=== PATIENT | male | born 1975 | race Caucasian/White ===

== ENCOUNTER → 2018-02-10 11:03 | Outpatient (CLI) | payer BC, SELFPAY ==
[2018-02-10 12:02] LABS: Absolute Lymphocyte Count 1.63 X10^3/ul (0.83-4.51); Absolute Neutrophil Count 2.7 X10^3/uL (2.0-7.7); Basophil# 0.01 X10^3/uL; Basophil% 0.2 % (0-1); Eosinophil# 0.06 X10^3/uL; Eosinophils% 1.2 % (0-5); Hematocrit 43.8 % (40-54); Hemoglobin 15.6 g/dl (13.0-16.5); Lymphocyte # 1.63 X10^3/ul (4.0); Lymphocyte % 33.8 % (19-41); Mean Corp Hgb Conc 35.6 g/gl (32-36); Mean Corpuscular Hgb 31.8 pg (27.0-32.0); Mean Corpuscular Volume 89.4 fL (80-94); Mean Platelet Vol. 12.8 fl (6.2-12.0); Monocyte# 0.38 X10^3/uL; Monocyte% 7.9 % (0-10); Neutrophil # 2.74 X10^3/uL (2.7-7.7); Neutrophil % 56.9 % (47-70); Platelet Count 160 K/mm3 (150-450); RBC Distribution Width SD 42.5 fl (35.1-43.9); White Blood Count 4.8 K/mm3 (4.4-11.0)
[2018-02-10 12:06] LABS: POSITIVE COUNT NO; POSITIVE DIFFERENTIAL NO; POSITIVE MORPHOLOGY NO
== END ==
PROVIDERS: Family Provider Family Medicine; PCP Family Medicine; Visit Provider Internal Medicine Gastroenterology
DX: K51.90 Ulcerative colitis, unspecified, without complications (principal)
CPT/HCPCS: 36415; 85025

== ENCOUNTER → 2018-05-26 11:56 | Outpatient (CLI) | payer BC, SELFPAY | PROVIDERS: Family Provider Family Medicine; PCP Family Medicine; Referring Provider Internal Medicine Gastroenterology; Visit Provider Internal Medicine Gastroenterology | DX: K51.90 Ulcerative colitis, unspecified, without complications (principal) ==

== ENCOUNTER → 2018-09-06 14:17 | Outpatient (CLI) | payer BC, SELFPAY ==
[2018-09-06 15:38] LABS: Hematocrit 44.4 % (40-54); Hemoglobin 15.2 g/dl (13.0-16.5); Mean Corp Hgb Conc 34.2 g/gl (32-36); Mean Corpuscular Hgb 30.5 pg (27.0-32.0); Mean Corpuscular Volume 89.2 fL (80-94); Mean Platelet Vol. 11.7 fl (6.2-12.0); Platelet Count 257 K/mm3 (150-450); RBC Distribution Width CV 13.5 % (11.6-14.6); RBC Distribution Width SD 43.3 fl (35.1-43.9); Red Blood Count 4.98 M/mm3 (4.6-6.2); Scan Indicated on CBC? Y/N NO; White Blood Count 9.2 K/mm3 (4.4-11.0)
[2018-09-06 15:52] LABS: AST(SGOT) 12 U/L (15-37); Alanine Aminotransfer ALT/SGPT 23 U/L (16-61); Albumin, Serum 3.7 g/dL (3.2-5.0); Alkaline Phosphatase 104 U/L (45-117); Bilirubin, Direct 0.15 mg/dL (0.00-0.30); Globulin 3.7 g/dL (2.2-4.2); Protein, Total 7.4 g/dL (6.4-8.2)
[2018-09-06 16:10] LABS: Erythrocyte Sedimentation Rate 37 mm/hr (0-15)
--- OUTSIDE RECORDS SUMMARY | 2018-11-11 11:18 | XMS RPT_ITS ---
:1975 Author Organization [facility] Care Team Providers Name Role Phone ROEL RIVERA Attending Unavailable ROEL RIVERA Referring Unavailable ROEL RIVERA Referring Unavailable ROEL RIVERA Referring Unavailable ROEL RIVERA Referring Unavailable ROEL RIVERA Attending Unavailable ROEL RIVERA Referring Unavailable ROEL RIVERA Referring Unavailable BEATRIZ ROSAROI Attending Unavailable ROEL RIVERA Referring Unavailable Chuck Fernandez Attending Unavailable Roel Rivera Primary Care Unavailable Chuck Fernandez Referring Unavailable Chuck Fernandez Attending Unavailable Chuck Fernandez Referring Unavailable Roel Rivera Primary Care Unavailable Chuck Fernandez Attending Unavailable Roel Rivera Primary Care Unavailable Chuck Fernandez Referring Unavailable Chuck Fernandez Attending Unavailable Chuck Fernandez Referring Unavailable Roel Rivera Primary Care Unavailable PROBLEMS PROBLEMS DATE TYPE CONDITION / CODE ATTENDING STATUS SOURCE 09/06/2018 Unknown K51.90 - Ulcerative Chuck Fernandez Active [place] colitis, Community unspecified, without Hospital complications / Repository K51.90(ICD-10) 09/01/2018 Active Abnormal results of NA Active Yolyn liver function [facility] Main studies / [place] R94.5(ICD-10) Repository 08/28/2017 Active Mixed hyperlipidemia NA Active Yolyn / E78.2(ICD-10) Clinic Main [place] Repository 02/10/2018 Active 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 Yolyn genital organs, [facility] Main unspecified / [place] N50.9(ICD-10) Repository PROCEDURES PROCEDURES No Procedure Records FoundRESULTS RESULTS PROGRESS Observed: 09/08/2018 Status: COMPLETED Source: [place] 9:05 AM [facility] REPOSITORY HNO ID: [id number] Author: Beatriz Rosario Service: (none) Author Type: Physician Type: Progress Notes Filed: 09/10/2018 11:32 AM Note Text: Rena Kaplan 1975 REFERRING PHYSICIAN: Roel Rivera MD CHIEF COMPLAINT: Consult HPI: The patient is a 43 year old male presents with mass of posterior lower neck. Noted for about 6 months, slowly enlarging in size. Denies pain in the area, but discomfort when extending neck due to pressure caused by its presence. Denies trauma to area Denies drainage from the area PAST MEDICAL HISTORY Diagnosis Date - Back pain - Chronic right-sided low back pain with right-sided sciatica 02/01/2017 - Elevated LFTs 09/01/2018 - Hydrocele, bilateral 02/17/2018 - Hyperlipidemia, mixed 08/28/2017 - Left varicocele 02/17/2018 - Lipoma of neck 09/01/2018 - Plantar fasciitis of left foot 01/01/2014 - Smoker 09/01/2018 Started at age 17 up to 1 PPD - Ulcerative colitis (HCC) Seeing Dr. Fernandez and is on imuran and seems to be well under control. PAST SURGICAL HISTORY Procedure Laterality Date - COLONOSCOPY W/BX 02/10/06 - SIGMOIDOSCOPY FLEX DIAG 04/16/2011 Sigmoidoscopy, flexible PAST INJURIES Denies head injuries, denies history of fractures Current Outpatient Prescriptions: mesalamine ER (APRISO) 0.375 gram capsule Take 4 capsules by mouth once daily. Per Dr. Fernandez Gastro azaTHIOprine (IMURAN) 50 mg tablet Take [address] Fernandez ALLERGIES: Patient has no known allergies. 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 Drug use: No FAMILY HISTORY Problem Relation Age of Onset - Cancer Paternal Grandfather - Heart Paternal Grandmother - Hypertension Father hemochromotosis - other (hypertension) Mother - other (crohns) Mother - None Brother - None Sister REVIEW OF SYSTEMS: General: The patient denies fatigue, denies weight loss, denies weight gain, denies feeling hot, and denies feelings of cold. Eyes: The patient denies glaucoma, denies eye injury/surgery, does not wear glasses or contacts. Ear/Nose/Throat: The patient denies allergies, denies hayfever, denies ear infections, and denies bloody noses. Cardiovascular: The patient denies chest pain, denies heart disease, denies high blood pressure,denies cardiac stent, denies prior heart attack, denies irregular heart beat Respiratory: The patient denies tuberculosis, denies pneumonia, denies frequent cough, denies pulmonary embolism, denies shortness of breath, and denies coughing up blood. Gastrointestinal: has ulcerative colitis and is on immunomodulators followed by Dr. Fernandez, denies difficulty swallowing, denies acid reflux, denies vomiting, denies jaundice/hepatitis Kidney/Bladder: The patient denies kidney stones, denies urine infections, and denies bloody urine. Skin: The patient denies a history of skin cancer, denies bleeding/changing moles, and denies a history of skin rash. Neurologic: The patient denies a history of epilepsy/convulsions, denies headaches, denies head/spinal injuries, and denies stroke/TIA. Psychiatric: The patient denies psychiatric medications, denies depression, and denies voices, denies substance abuse. Endocrine: The patient denies thyroid disorders, denies diabetes, and denies hormonal problems. Hematologic: The patient denies a history of bruising, denies bleeding, and denies anemia, denies blood clots. Infections: The patient denies a history of measles and mumps, denies rheumatic fever, and denies sexually transmitted diseases. Musculoskeletal: has chronic low back pain, denies sciatica, denies knee/foot trouble, denies arthritis, or denies gout. PHYSICAL EXAMINATION: General: The patient is 43 year old male, well nourished, well hydrated in no acute distress. The patient is oriented to time, place, and person. VITALS: Blood pressure 110/84, pulse 66, weight 107.1 kg (236 lb 3.2 oz). Body mass index is 32.03 kg/m?. Head ? Normocephalic. EOM intact with sclera clear and no icterus noted. Mouth with mucus membranes moist. Neck - supple with no jugular venous distention noted. Trachea is midline. Posterior lower - 10 cm mass - deep to subcutaneous tissues, dense rubbery not mobile, no overlying skin changes Lungs ? clear to auscultation. Normal breath sounds. No rales/rhonchi/wheezing noted. No labored breathing noted, such as retractions. Heart ? normal S1 and S2 auscultated. No rubs/clicks/murmurs noted. Regular rate. Abdomen ? soft and benign. Normal bowel sounds. No abdominal bruits noted. No distention or tympany noted. Extremities ? no calf tenderness noted. No pitting edema noted Skin ? normal skin integrity. Lymph ? no cervical adenopathy detected, no supraclavicular adenopathy detected Neurological ? gait normal, no focal deficits noted Psych ? calm and appropriate Assessment IMPRESSION: mass of posterior neck PLAN: I have discussed the above with the patient. This clinically is not clinically classic for lipoma - however, it may be deep to the fascia Will obtain CT scan for delineation. The patient wishes to proceed. Will contact patient with results and if he wishes, we can schedule for excision after review of the CT scan. I have answered all questions to the patient?s satisfaction and the patient has no further questions. . Diagnoses: (R22.1) Localized swelling, mass and lump, neck (primary encounter diagnosis) Return to Clinic: The patient is instructed to follow-up with me as per needed. Beatriz Rosario MD CNOV Observed: 09/08/2018 Status: COMPLETED Source: [place] 8:20 AM [facility] REPOSITORY Office Visit (GENSWS) RENA KAPLAN ([id number]) 1975 M Date Time Provider Department 09/08/18 8:20 AM BEATRIZ ROSARIO During your visit today, we recorded the following information about you: Pulse Blood pressure Weight 66/minute 110/84 107.1 kg Angie Nascimento RN 09/08/2018 8:16 AM Signed REVIEW OF SYSTEMS: General: The patient denies fatigue, denies weight loss, denies weight gain, denies feeling hot, and denies feelings of cold. Eyes: The patient denies glaucoma, denies eye injury/surgery, does not wear glasses or contacts. Ear/Nose/Throat: The patient denies allergies, denies hayfever, denies ear infections, and denies bloody noses. Cardiovascular: The patient denies chest pain, denies heart disease, denies high blood pressure,denies cardiac stent, denies prior heart attack, denies irregular heart beat, denies high cholesterol, denies poor circulation, denies heart failure, other cardiac issues, denies claudication, denies cold feet, denies peripheral arterial stent. Respiratory: The patient denies tuberculosis, denies pneumonia, denies frequent cough, denies pulmonary embolism, denies shortness of breath, and denies coughing up blood. Gastrointestinal: The patient denies difficulty swallowing, denies acid reflux, denies ulcers, denies vomiting, denies jaundice/hepatitis, denies gallbladder problems, denies black or tarry stools, denies hemorrhoids, denies bleeding from rectum, denies diverticulitis, denies constipation, denies diarrhea, denies loss of stool control, and denies hernias. Kidney/Bladder: The patient denies kidney stones, denies urine infections, and denies bloody urine. Skin: The patient denies a history of skin cancer, denies bleeding/changing moles, and denies a history of skin rash. Neurologic: The patient denies a history of epilepsy/convulsions, denies headaches, denies head/spinal injuries, and denies stroke/TIA. Psychiatric: The patient denies psychiatric medications, denies depression, and denies voices, denies substance abuse. Endocrine: The patient denies thyroid disorders, denies diabetes, and denies hormonal problems. Hematologic: The patient denies a history of bruising, denies bleeding, and denies anemia, denies blood clots. Infections: The patient denies a history of measles and mumps, denies rheumatic fever, and denies sexually transmitted diseases. Musculoskeletal: The patient denies back pain/injury, denies back problems, denies sciatica, denies knee/foot trouble, denies arthritis, or denies gout. When was patient's last Mammogram screening? N/A Last Colonoscopy: 08/2017 Angie Rosario MD 09/10/2018 11:32 AM Signed Rena Kaplan 1975 REFERRING PHYSICIAN: Roel Rivera MD CHIEF COMPLAINT: Consult HPI: The patient is a 43 year old male presents with mass of posterior lower neck. Noted for about 6 months, slowly enlarging in size. Denies pain in the area, but discomfort when extending neck due to pressure caused by its presence. Denies trauma to area Denies drainage from the area PAST MEDICAL HISTORY Diagnosis Date - Back pain - Chronic right-sided low back pain with right-sided sciatica 02/01/2017 - Elevated LFTs 09/01/2018 - Hydrocele, bilateral 02/17/2018 - Hyperlipidemia, mixed 08/28/2017 - Left varicocele 02/17/2018 - Lipoma of neck 09/01/2018 - Plantar fasciitis of left foot 01/01/2014 - Smoker 09/01/2018 Started at age 17 up to 1 PPD - Ulcerative colitis (HCC) Seeing Dr. Fernandez and is on imuran and seems to be well under control. PAST SURGICAL HISTORY Procedure Laterality Date - COLONOSCOPY W/BX 02/10/06 - SIGMOIDOSCOPY FLEX DIAG 04/16/2011 Sigmoidoscopy, flexible PAST INJURIES Denies head injuries, denies history of fractures Current Outpatient Prescriptions: mesalamine ER (APRISO) 0.375 gram capsule Take 4 capsules by mouth once daily. Per Dr. Fernandez Gastro azaTHIOprine (IMURAN) 50 mg tablet Take [address] Fernandez ALLERGIES: Patient has no known allergies. 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 Drug use: No FAMILY HISTORY Problem Relation Age of Onset - Cancer Paternal Grandfather - Heart Paternal Grandmother - Hypertension Father hemochromotosis - other (hypertension) Mother - other (crohns) Mother - None Brother - None Sister REVIEW OF SYSTEMS: General: The patient denies fatigue, denies weight loss, denies weight gain, denies feeling hot, and denies feelings of cold. Eyes: The patient denies glaucoma, denies eye injury/surgery, does not wear glasses or contacts. Ear/Nose/Throat: The patient denies allergies, denies hayfever, denies ear infections, and denies bloody noses. Cardiovascular: The patient denies chest pain, denies heart disease, denies high blood pressure,denies cardiac stent, denies prior heart attack, denies irregular heart beat Respiratory: The patient denies tuberculosis, denies pneumonia, denies frequent cough, denies pulmonary embolism, denies shortness of breath, and denies coughing up blood. Gastrointestinal: has ulcerative colitis and is on immunomodulators followed by Dr. Fernandez, denies difficulty swallowing, denies acid reflux, denies vomiting, denies jaundice/hepatitis Kidney/Bladder: The patient denies kidney stones, denies urine infections, and denies bloody urine. Skin: The patient denies a history of skin cancer, denies bleeding/changing moles, and denies a history of skin rash. Neurologic: The patient denies a history of epilepsy/convulsions, denies headaches, denies head/spinal injuries, and denies stroke/TIA. Psychiatric: The patient denies psychiatric medications, denies depression, and denies voices, denies substance abuse. Endocrine: The patient denies thyroid disorders, denies diabetes, and denies hormonal problems. Hematologic: The patient denies a history of bruising, denies bleeding, and denies anemia, denies blood clots. Infections: The patient denies a history of measles and mumps, denies rheumatic fever, and denies sexually transmitted diseases. Musculoskeletal: has chronic low back pain, denies sciatica, denies knee/foot trouble, denies arthritis, or denies gout. PHYSICAL EXAMINATION: General: The patient is 43 year old male, well nourished, well hydrated in no acute distress. The patient is oriented to time, place, and person. VITALS: Blood pressure 110/84, pulse 66, weight 107.1 kg (236 lb 3.2 oz). Body mass index is 32.03 kg/m?. Head ? Normocephalic. EOM intact with sclera clear and no icterus noted. Mouth with mucus membranes moist. Neck - supple with no jugular venous distention noted. Trachea is midline. Posterior lower - 10 cm mass - deep to subcutaneous tissues, dense rubbery not mobile, no overlying skin changes Lungs ? clear to auscultation. Normal breath sounds. No rales/rhonchi/wheezing noted. No labored breathing noted, such as retractions. Heart ? normal S1 and S2 auscultated. No rubs/clicks/murmurs noted. Regular rate. Abdomen ? soft and benign. Normal bowel sounds. No abdominal bruits noted. No distention or tympany noted. Extremities ? no calf tenderness noted. No pitting edema noted Skin ? normal skin integrity. Lymph ? no cervical adenopathy detected, no supraclavicular adenopathy detected Neurological ? gait normal, no focal deficits noted Psych ? calm and appropriate Assessment IMPRESSION: mass of posterior neck PLAN: I have discussed the above with the patient. This clinically is not clinically classic for lipoma - however, it may be deep to the fascia Will obtain CT scan for delineation. The patient wishes to proceed. Will contact patient with results and if he wishes, we can schedule for excision after review of the CT scan. I have answered all questions to the patient?s satisfaction and the patient has no further questions. . Diagnoses: (R22.1) Localized swelling, mass and lump, neck (primary encounter diagnosis) Return to Clinic: The patient is instructed to follow-up with me as per needed. Beatriz Rosario MD Referring Provider: ROEL RIVERA [[id number]] Allergies As of Date: 09/08/2018 (No Known Allergies) Date Reviewed: 09/08/2018 Reviewed by: Beatriz Rosario - Fully Assessed Reason for Visit: Consult [[id number]] Primary Visit Diagnosis:Localized swelling, mass and lump, neck [R22.1] Other Visit Diagnosis:Localized swelling, mass or lump of neck [R22.1] Order(s):CT NECK SOFT TISSUE WO IVCON [[id number]] Order #: [id number] FUTURE Prescriptions as of 09/08/2018 Sig: MESALAMINE ER 0.375 GRAM CAPS* Take 4 capsules by mouth once* AZATHIOPRINE 50 MG TABLET Take [address]* Problem List As Of Date 09/08/2018 Noted Resolved Ulcerative colitis (HCC) [K51.90] More... Sciatica [M54.30] INVALID FOR*03/17/2011 Back pain [M54.9] INVALID FOR* More... Plantar fasciitis of left foot [M72.2] INVALID FOR* More... More... Chronic right-sided low back pain with right-si*INVALID FOR* Encounter for screening for cardiovascular diso*INVALID FOR* Encounter for screening for diabetes mellitus [*INVALID FOR* Hyperlipidemia, mixed [E78.2] INVALID FOR* Well adult exam [Z00.00] INVALID FOR* More... Mass of scrotum [N50.9] INVALID FOR* More... Hydrocele, bilateral [N43.3] INVALID FOR* Left varicocele [I86.1] INVALID FOR* Elevated LFTs [R94.5] INVALID FOR* Lipoma of neck [D17.0] INVALID FOR* Smoker [F17.200] INVALID FOR* More... Visit Notes: >> Angie Nascimento RN TueSep 08, 2018 8:15 AM Status: Signed REVIEW OF SYSTEMS: General: The patient denies fatigue, denies weight loss, denies weight gain, denies feeling hot, and denies feelings of cold. Eyes: The patient denies glaucoma, denies eye injury/surgery, does not wear glasses or contacts. Ear/Nose/Throat: The patient denies allergies, denies hayfever, denies ear infections, and denies bloody noses. Cardiovascular: The patient denies chest pain, denies heart disease, denies high blood pressure,denies cardiac stent, denies prior heart attack, denies irregular heart beat, denies high cholesterol, denies poor circulation, denies heart failure, other cardiac issues, denies claudication, denies cold feet, denies peripheral arterial stent. Respiratory: The patient denies tuberculosis, denies pneumonia, denies frequent cough, denies pulmonary embolism, denies shortness of breath, and denies coughing up blood. Gastrointestinal: The patient denies difficulty swallowing, denies acid reflux, denies ulcers, denies vomiting, denies jaundice/hepatitis, denies gallbladder problems, denies black or tarry stools, denies hemorrhoids, denies bleeding from rectum, denies diverticulitis, denies constipation, denies diarrhea, denies loss of stool control, and denies hernias. Kidney/Bladder: The patient denies kidney stones, denies urine infections, and denies bloody urine. Skin: The patient denies a history of skin cancer, denies bleeding/changing moles, and denies a history of skin rash. Neurologic: The patient denies a history of epilepsy/convulsions, denies headaches, denies head/spinal injuries, and denies stroke/TIA. Psychiatric: The patient denies psychiatric medications, denies depression, and denies voices, denies substance abuse. Endocrine: The patient denies thyroid disorders, denies diabetes, and denies hormonal problems. Hematologic: The patient denies a history of bruising, denies bleeding, and denies anemia, denies blood clots. Infections: The patient denies a history of measles and mumps, denies rheumatic fever, and denies sexually transmitted diseases. Musculoskeletal: The patient denies back pain/injury, denies back problems, denies sciatica, denies knee/foot trouble, denies arthritis, or denies gout. When was patient's last Mammogram screening? N/A Last Colonoscopy: 08/2017 Angie Nascimento RN Letter Text Encounter Status:Closed by MD BEATRIZ ROSARIO on 09/10/18 Observed: 09/07/2018 Status: F Source: [place] CDIFF (MOLECULAR) 12:00 AM [facility] [place] Cdiff-Molecular Normal Reference Range = Negative C. Diff DNA Negative- No toxigenic C. Diff DNA Detected NAAT METHOD Testing was performed using nucleic acid amplification Performed By: #### M100.6796 #### [facility] [address] [place], [place], [address] CBC-COMPLETE BLOOD CNT Collected: 09/06/2018 Status: F Source: [place] NO DIFF 2:23 PM [facility] [place] [facility] TYPE CODE TESTS RESULT OUT OF RANGE REFERENCE UNITS LAB L100.1000 4.4-11.0 K/mm3 Normal WBC 9.2 LAB L100.1200 4.6-6.2 M/mm3 Normal RBC 4.98 LAB L100.1300 13.0-16.5 g/dl Normal HGB 15.2 LAB L100.1400 40-54 % Normal HCT 44.4 LAB L100.1500 80-94 fL Normal MCV 89.2 LAB L100.1600 27.0-32.0 pg Normal MCH 30.5 LAB L100.1700 32-36 g/gl Normal MCHC 34.2 LAB L100.1810 11.6-14.6 % Normal RDW CV 13.5 LAB L100.1820 35.1-43.9 fl Normal RDW SD 43.3 LAB L100.1900 150-450 K/mm3 Normal PLT 257 LAB L100.2000 6.2-12.0 fl Normal MPV 11.7 Performed By: #### L100.0500, L101.9900 #### [facility] [address] [place], [place], [address] ERYTHROCYTE SED RATE Collected: 09/06/2018 Status: F Source: [place] 2:23 PM [facility] [place] [facility] TYPE CODE TESTS RESULT OUT OF RANGE REFERENCE UNITS LAB L102.0000 0-15 mm/hr High SED RATE 37 Performed By: #### L100.0500, L101.9900 #### [facility] [address] [place], [place], [id number] LIVER PROFILE Collected: 09/06/2018 Status: F Source: [place] 2:23 PM [facility] [place] TYPE CODE TESTS RESULT OUT OF RANGE REFERENCE UNITS LAB L501.1500 6.4-8.2 g/dL Normal T PROT 7.4 LAB L501.1800 3.2-5.0 g/dL Normal ALB 3.7 LAB L501.1950 2.2-4.2 g/dL Normal GLOB 3.7 LAB L501.4100 15-37 U/L Low AST 12 LAB L501.4305 45-117 U/L Normal ALK P 104 LAB L501.4405 16-61 U/L Normal ALT 23 LAB L501.4600 0.20-1.00 mg/dL Normal T BILI 0.70 LAB L501.4700 0.00-0.30 mg/dL Normal D BILI 0.15 Performed By: #### L500.3400 #### [facility] [address] [place], [address] HEPATIC FUNCTN PANEL Collected: 09/01/2018 Status: F Source: [place] 10:40 AM [facility] REPOSITORY TYPE CODE TESTS RESULT OUT OF REFERENCE UNITS RANGE LAB ALB 3.9-4.9 g/dL Albumin 4.7 LAB TBIL 0.2-1.3 mg/dL Bilirubin, Total 0.5 LAB CBIL <0.2 mg/dL Bilirubin,Conjuga <0.2 andrew LAB ALKP 38-113 U/L Alkaline Phosphatase 91 LAB AST 14-40 U/L AST 18 LAB ALT 10-54 U/L ALT 20 LAB TP 6.3-8.0 g/dL Protein, Total 7.2 Performed By: #### HFP, LIPNF #### [facility] [address] [place], [place] [address] LIPID PANEL, NONFAST Collected: 09/01/2018 Status: F Source: [place] 10:40 AM [facility] REPOSITORY TYPE CODE TESTS RESULT OUT OF REFERENCE UNITS RANGE LAB CHOLNF <200 mg/dL Total Cholesterol NF 151 Result Comment: <200 mg/dL, Desirable 200-239 mg/dL, Borderline high >239 mg/dL, High LAB TRIGNF <150 mg/dL Triglycerides, NF High 188 Result Comment: <150 mg/dL, Normal 150-199 mg/dL, Borderline high 200-499 mg/dL, High >499 mg/dL, Very high LAB HDLNF >39 mg/dL HDL Cholesterol, NF Low 27 Result Comment: 40-59 mg/dL, Acceptable >59 mg/dL, High: Negative risk factor for coronary heart disease <40 mg/dL, Low: Positive risk factor for coronary heart disease LAB LDLNF <100 mg/dL LDL Cholesterol, NF 86 Result Comment: <100 mg/dL, Optimal 100-129 mg/dL, Near optimal/above optimal 130-159 mg/dL, Borderline high 160-189 mg/dL, High >189 mg/dL, Very high Secondary prevention optimal LDL Cholesterol levels are recommended to be < 70 mg/dL LAB NOHDLN <130 mg/dL Non HDL Chol, 124 NF Result Comment: <130 mg/dL, Optimal 130-159 mg/dL, Near optimal/above optimal 160-189 mg/dL, Borderline high 190-219 mg/dL, High >219 mg/dL, Very high Secondary prevention optimal non HDL Cholesterol levels are recommended to be < 100 mg/dL LAB VLDLNF <30 mg/dL VLDL Cholesterol, High NF 38 LAB TCHDLN <5.10 mg/dL T Chol/HDL Ratio High NF 5.59 LAB LDLHDN <2.54 mg/dL LDL/HDL Ratio, NF High 3.19 Result Comment: Reference: 1. National Cholesterol Education Program ATP III Guideline At-A-Glance Quick Desk Reference: National Heart, Lung, and Blood Comfort. National Institutes of Health. 2001: NIH Publication No. 01-3305. 2. An International Atherosclerosis Society position paper: global recommendations for the management of dyslipidemia: executive summary, Atherosclerosis. 2014: 232(2):410-413. Performed By: #### HFP, LIPNF #### [facility] [address] [place], [place] [address] PROGRESS Observed: 09/01/2018 Status: COMPLETED Source: [place] 9:56 AM [facility] REPOSITORY O ID: [id number] Author: Roel Rivera Service: (none) Author Type: Physician Type: Progress Notes Filed: 09/01/2018 1:18 PM Note Text: Chief Complaint Patient presents with: Recheck: 6 months HPI Rena Kaplan is a 43 year old male who presents here today for Chronic Medical Conditions.. Patient with UC and seeing Dr. Fernandez doing well. Had a change in medication due to insurance coverage.. Also with Hyperlipidemia, smoker, chronic back pain, elevated LFT's as well as those reviewed and addressed below. Has been doing ok. Back has been slightly more irritated in the past few weeks. Better in the last few days. May try to return to back specialist. New: C/o a lump on the upper back/lower neck area. Not sure if it's gotten larger more recently. No pain. Past medical history, appointments, medications, allergies reviewed. Previous Medical History PAST MEDICAL HISTORY Diagnosis Date - Back pain - Chronic right-sided low back pain with right-sided sciatica 02/01/2017 - Hydrocele, bilateral 02/17/2018 - Hyperlipidemia, mixed 08/28/2017 - Left varicocele 02/17/2018 - Plantar fasciitis of left foot 01/01/2014 - Ulcerative colitis (HCC) Seeing Dr. Fernandez and is on imuran and seems to be well under control. Previous Surgical History PAST SURGICAL HISTORY Procedure Laterality Date - COLONOSCOPY W/BX 02/10/06 - SIGMOIDOSCOPY FLEX DIAG 04/16/2011 Sigmoidoscopy, flexible Family History FAMILY HISTORY Problem Relation Age of Onset - Cancer Paternal Grandfather - Heart Paternal Grandmother - Hypertension Father hemochromotosis - other (hypertension) Mother - other (crohns) Mother - None Brother - None Sister Patient Allergies ALLERGIES No Known Allergies Current Medications Current Outpatient Prescriptions on File Prior to Visit: Mesalamine (LIALDA) 1.2 gram EC tablet Take 2 tablets by mouth daily with breakfast. Per Dr. Fernandez azaTHIOprine (IMURAN) 50 mg tablet Take [address] Fernandez No current facility-administered medications on file prior to visit. 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 Drug use: No Review of Symptoms REVIEW OF SYSTEMS NECK: Negative for lumps, goiter, pain and significant neck swelling RESPIRATORY: Negative for cough, hemoptysis, wheezing, COPD, dyspnea or shortness of breath CARDIOVASCULAR: Negative for chest pain, leg swelling, hypertension, CHF or palpitations MUSCULOSKELETAL: See HPI SKIN: See HPI NEURO: No history of headaches, syncope, paralysis, seizures or tremors EXAM: BP 132/94 Pulse 78 Resp 16 Wt 109.3 kg (241 lb) BMI 32.69 kg/m? BP 122/82 Pulse 78 Resp 16 Wt 109.3 kg (241 lb) BMI 32.69 kg/m? General Appearance: Well appearing, alert, in no acute distress, well-hydrated, well nourished. and Overweight. Skin: has a fair sized lipoma on the back of his neck.. Eyes: Anicteric sclera. Pupils are equally round. Extraocular movements are intact. . Neck: Supple, no adenopathy; thyroid symmetric, normal size, no bruits. Lungs: lungs clear to auscultation. No wheezing, rhonchi, rales. Heart: RRR without murmur, gallop, or rubs. No ectopy. Abdomen: Normal abdominal exam, Abdomen soft, non-tender. Bowel sounds normal. No masses, organomegaly. Extremities: No deformities, edema . Peripheral Pulses: Normal. Neurologic: Gait normal. . Sensation to light touch and strength intact.. Health Maintenance List ONE PNEUMOVAX PRIOR TO AGE 65 due on 02/02/1995 LIPID SCREEN due on 03/31/2023 DTAP,TDAP,TD(3 - Td) due on 08/10/2027 INFLUENZA Completed Data reviewed Component Latest Ref Rng AND Units 03/31/2018 05/26/2018 Cholesterol, Total <200 mg/dL 219 (H) Triglyceride <150 mg/dL 254 (H) HDL Cholesterol >39 mg/dL 25 (L) LDL Cholesterol <100 mg/dL 143 (H) Non HDL Cholesterol <130 mg/dL 194 (H) Fasting Time hrs 11 VLDL Cholesterol <30 mg/dL 51 (H) TC:HDL Ratio <5.10 8.76 (H) LDL:HDL Ratio <2.54 5.72 (H) Albumin 3.9 - 4.9 g/dL 4.9 Bilirubin, Total 0.2 - 1.3 mg/dL 0.8 Bilirubin, Conjug <0.2 mg/dL <0.2 Alkaline Phosphatase 38 - 113 U/L 53 AST 14 - 40 U/L 58 (H) ALT 10 - 54 U/L 92 (H) Protein, Total 6.3 - 8.0 g/dL 6.8 Hep A Ab, IgM Negative Negative Hep B Surface Ag Negative Negative HCV RNA by PCR IU/mL HCV RNA not detected by PCR. Hep B Core Ab, IgM Negative Negative A/P ASSESSMENT/PLAN: 1. Hyperlipidemia, mixed - ICD9: 272.2, ICD10: E78.2 (primary diagnosis) - to be determined upon return of lab results - Encouraged following a low fat, low cholesterol diet. - Discussed the benefits of regular aerobic exercise and weight loss. - Encouraged following a low carbohydrate, healthy oil intake diet. - LIPID PANEL, NONFASTING 2. Elevated LFTs - ICD9: 790.6, ICD10: R94.5 check - HEPATIC FUNCTION PNL. If elevated will need US. Hepatitis panel was normal. 3. Other ulcerative colitis without complication - ICD9: 556.8, ICD10: K51.80 - Cont f/u with Gastro 4. Lipoma of neck - ICD9: 214.1, ICD10: D17.0 - Discussed natural course and patient would like to pursue removal - CONSULT TO GENERAL SURGERY 5. Smoker - ICD9: 305.1, ICD10: F17.200 - Cessation encouraged. - Counseling was given focusing on the harmful effects of this addiction especially given the patient's medical condition(s) which will be worsened because of the chemicals in tobacco. - patient has starting thinking of quitting. F/u 6 months WAE sooner if issues. Roel Rivera MD CNOV Observed: 09/01/2018 Status: COMPLETED Source: [place] 9:40 AM [facility] REPOSITORY Office Visit (FAMPWS) RENA KAPLAN ([id number]) 1975 M Date Time Provider Department 09/01/18 9:40 AM ROEL RIVERAPWS During your visit today, we recorded the following information about you: Pulse Respiration Blood pressure Weight 78/minute 16/minute 122/82 109.3 kg Roel Rivera MD 09/01/2018 1:18 PM Signed Chief Complaint Patient presents with: Recheck: 6 months HPI Rena Kaplan is a 43 year old male who presents here today for Chronic Medical Conditions.. Patient with UC and seeing Dr. Fernandez doing well. Had a change in medication due to insurance coverage.. Also with Hyperlipidemia, smoker, chronic back pain, elevated LFT's as well as those reviewed and addressed below. Has been doing ok. Back has been slightly more irritated in the past few weeks. Better in the last few days. May try to return to back specialist. New: C/o a lump on the upper back/lower neck area. Not sure if it's gotten larger more recently. No pain. Past medical history, appointments, medications, allergies reviewed. Previous Medical History PAST MEDICAL HISTORY Diagnosis Date - Back pain - Chronic right-sided low back pain with right-sided sciatica 02/01/2017 - Hydrocele, bilateral 02/17/2018 - Hyperlipidemia, mixed 08/28/2017 - Left varicocele 02/17/2018 - Plantar fasciitis of left foot 01/01/2014 - Ulcerative colitis (HCC) Seeing Dr. Fernandez and is on imuran and seems to be well under control. Previous Surgical History PAST SURGICAL HISTORY Procedure Laterality Date - COLONOSCOPY W/BX 02/10/06 - SIGMOIDOSCOPY FLEX DIAG 04/16/2011 Sigmoidoscopy, flexible Family History FAMILY HISTORY Problem Relation Age of Onset - Cancer Paternal Grandfather - Heart Paternal Grandmother - Hypertension Father hemochromotosis - other (hypertension) Mother - other (crohns) Mother - None Brother - None Sister Patient Allergies ALLERGIES No Known Allergies Current Medications Current Outpatient Prescriptions on File Prior to Visit: Mesalamine (LIALDA) 1.2 gram EC tablet Take 2 tablets by mouth daily with breakfast. Per Dr. Fernandez azaTHIOprine (IMURAN) 50 mg tablet Take [address] Fernandez No current facility-administered medications on file prior to visit. 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 Drug use: No Review of Symptoms REVIEW OF SYSTEMS NECK: Negative for lumps, goiter, pain and significant neck swelling RESPIRATORY: Negative for cough, hemoptysis, wheezing, COPD, dyspnea or shortness of breath CARDIOVASCULAR: Negative for chest pain, leg swelling, hypertension, CHF or palpitations MUSCULOSKELETAL: See HPI SKIN: See HPI NEURO: No history of headaches, syncope, paralysis, seizures or tremors EXAM: BP 132/94 Pulse 78 Resp 16 Wt 109.3 kg (241 lb) BMI 32.69 kg/m? BP 122/82 Pulse 78 Resp 16 Wt 109.3 kg (241 lb) BMI 32.69 kg/m? General Appearance: Well appearing, alert, in no acute distress, well-hydrated, well nourished. and Overweight. Skin: has a fair sized lipoma on the back of his neck.. Eyes: Anicteric sclera. Pupils are equally round. Extraocular movements are intact. . Neck: Supple, no adenopathy; thyroid symmetric, normal size, no bruits. Lungs: lungs clear to auscultation. No wheezing, rhonchi, rales. Heart: RRR without murmur, gallop, or rubs. No ectopy. Abdomen: Normal abdominal exam, Abdomen soft, non-tender. Bowel sounds normal. No masses, organomegaly. Extremities: No deformities, edema . Peripheral Pulses: Normal. Neurologic: Gait normal. . Sensation to light touch and strength intact.. Health Maintenance List ONE PNEUMOVAX PRIOR TO AGE 65 due on 02/02/1995 LIPID SCREEN due on 03/31/2023 DTAP,TDAP,TD(3 - Td) due on 08/10/2027 INFLUENZA Completed Data reviewed Component Latest Ref Rng AND Units 03/31/2018 05/26/2018 Cholesterol, Total <200 mg/dL 219 (H) Triglyceride <150 mg/dL 254 (H) HDL Cholesterol >39 mg/dL 25 (L) LDL Cholesterol <100 mg/dL 143 (H) Non HDL Cholesterol <130 mg/dL 194 (H) Fasting Time hrs 11 VLDL Cholesterol <30 mg/dL 51 (H) TC:HDL Ratio <5.10 8.76 (H) LDL:HDL Ratio <2.54 5.72 (H) Albumin 3.9 - 4.9 g/dL 4.9 Bilirubin, Total 0.2 - 1.3 mg/dL 0.8 Bilirubin, Conjug <0.2 mg/dL <0.2 Alkaline Phosphatase 38 - 113 U/L 53 AST 14 - 40 U/L 58 (H) ALT 10 - 54 U/L 92 (H) Protein, Total 6.3 - 8.0 g/dL 6.8 Hep A Ab, IgM Negative Negative Hep B Surface Ag Negative Negative HCV RNA by PCR IU/mL HCV RNA not detected by PCR. Hep B Core Ab, IgM Negative Negative A/P ASSESSMENT/PLAN: 1. Hyperlipidemia, mixed - ICD9: 272.2, ICD10: E78.2 (primary diagnosis) - to be determined upon return of lab results - Encouraged following a low fat, low cholesterol diet. - Discussed the benefits of regular aerobic exercise and weight loss. - Encouraged following a low carbohydrate, healthy oil intake diet. - LIPID PANEL, NONFASTING 2. Elevated LFTs - ICD9: 790.6, ICD10: R94.5 check - HEPATIC FUNCTION PNL. If elevated will need US. Hepatitis panel was normal. 3. Other ulcerative colitis without complication - ICD9: 556.8, ICD10: K51.80 - Cont f/u with Gastro 4. Lipoma of neck - ICD9: 214.1, ICD10: D17.0 - Discussed natural course and patient would like to pursue removal - CONSULT TO GENERAL SURGERY 5. Smoker - ICD9: 305.1, ICD10: F17.200 - Cessation encouraged. - Counseling was given focusing on the harmful effects of this addiction especially given the patient's medical condition(s) which will be worsened because of the chemicals in tobacco. - patient has starting thinking of quitting. F/u 6 months WAE sooner if issues. Roel Rivera MD Referring Provider: ROEL RIVERA [[id number]] Allergies As of Date: 09/01/2018 (No Known Allergies) Date Reviewed: 09/01/2018 Reviewed by: Roel Rivera - Fully Assessed Reason for Visit: Recheck [92] Cmt: 6 months Primary Visit Diagnosis:Hyperlipidemia, mixed [E78.2] Other Visit Diagnoses:Elevated LFTs [R94.5] Other ulcerative colitis without complication [K51.80] Lipoma of neck [D17.0] Smoker [F17.200] Order(s):mesalamine ER (APRISO) 0.375 gram capsuleTake 4 capsules by mouth once daily. Per Dr. Fernandez GastroDisp: Rfl: LIPID PANEL, NONFASTING [SQLIPNF] Order #: [id number] FUTURE HEPATIC FUNCTION PNL [SQHFP] Order #: [id number] FUTURE CONSULT TO GENERAL SURGERY [9011] Order #: [id number]: 1 Prescriptions as of 09/01/2018 Sig: AZATHIOPRINE 50 MG TABLET Take 4 tablets daily. Per Vish MESALAMINE ER 0.375 GRAM CAPS* Take 4 capsules by mouth once* Medication notes this encounter MESALAMINE 1.2 GRAM TABLET,DELAYED RELEASE >> Roel Rivera MD 09/01/2018 9:[address] Fernandez changed due to cost Problem List As Of Date 09/01/2018 Noted Resolved Ulcerative colitis (HCC) [K51.90] More... Sciatica [M54.30] INVALID FOR*03/17/2011 Back pain [M54.9] INVALID FOR* More... Plantar fasciitis of left foot [M72.2] INVALID FOR* More... More... Chronic right-sided low back pain with right-si*INVALID FOR* Encounter for screening for cardiovascular diso*INVALID FOR* Encounter for screening for diabetes mellitus [*INVALID FOR* Hyperlipidemia, mixed [E78.2] INVALID FOR* Well adult exam [Z00.00] INVALID FOR* More... Mass of scrotum [N50.9] INVALID FOR* More... Hydrocele, bilateral [N43.3] INVALID FOR* Left varicocele [I86.1] INVALID FOR* Elevated LFTs [R94.5] INVALID FOR* Lipoma of neck [D17.0] INVALID FOR* Smoker [F17.200] INVALID FOR* More... Prescriptions ordered this encounter Disp Refills Start End MESALAMINE ER 0.375 GRAM CAPSULE,EXT* 09/01/2018 Class: Med Update Route: ORAL Sig: Take 4 capsules by mouth once daily. Per Dr. Fernandez Gastro Medications Discontinued During This Encounter Mesalamine (LIALDA) 1.2 gram EC tabl* 02/10/2018 09/01/2018 Class: Med Update Route: ORAL Sig: Take 2 tablets by mouth daily with breakfast. Per Dr. Fernandez Disc: Discontinued by another Health Care Provider Disposition: Return in about 6 months (around 03/01/2019) for complete PE. Follow-up and Disposition History Recorded Encounter Status:Closed by ROEL RIVERA on 09/01/18 HEPATIC FUNCTN PANEL Collected: 05/26/2018 Status: F Source: [place] 12:31 PM [facility] REPOSITORY TYPE CODE TESTS RESULT OUT OF REFERENCE UNITS RANGE LAB ALB 3.9-4.9 g/dL Albumin 4.9 LAB TBIL 0.2-1.3 mg/dL Bilirubin, Total 0.8 LAB CBIL <0.2 mg/dL Bilirubin,Conjuga <0.2 andrew LAB ALKP 38-113 U/L Alkaline Phosphatase 53 LAB AST 14-40 U/L AST High 58 LAB ALT 10-54 U/L ALT High 92 LAB TP 6.3-8.0 g/dL Protein, Total 6.8 Performed By: #### ROM HAKATHY #### [facility] [address] [address] HEPATITIS ACUTE RNA Collected: 05/26/2018 Status: F Source: [place] 12:31 PM [facility] REPOSITORY TYPE CODE TESTS RESULT OUT OF REFERENCE UNITS RANGE LAB AHAVM Negative Hepatitis A Ab Negative IgM LAB HBSAGA Negative HBsAg Negative LAB HCQPCR IU/mL Hepatitis C RNA HCV RNA not detected by PCR. Result Comment: Reference Range: Negative for HCV RNA The Linear Range of this assay is 15 IU/mL to 100,000,000 IU/mL. LAB AHBCM Negative Negative Hep B Core Ab, IgM Performed By: #### ROM HACRNA #### [facility] [employer] [address] [place], [place] [address] MISCELLANEOUS LAB Collected: 05/26/2018 Status: F Source: [place] 12:02 PM [facility] Order Comment: Comments: PROMETHIUS Test(s) Ordered: PROMETHIUS TYPE CODE TESTS RESULT OUT OF RANGE REFERENCE UNITS LAB L801.1541 Normal [facility] LAB TEST Result Comment: Scanned image report available in EMR Performed By: #### [id number] #### [facility] [address] [place], [address] URINALYSIS WITH Collected: 03/31/2018 Status: F Source: [facility] 2:30 PM [facility] REPOSITORY TYPE CODE TESTS RESULT OUT OF RANGE REFERENCE UNITS LAB UCOL Yellow Color Yellow LAB [facility] Clear Clarity Clear LAB UGLUC Negative mg/dL Glucose, Urine Negative LAB UBIL Negative Bilirubin, Urine Negative LAB UKET Negative Ketones, Urine Negative LAB USPG 1.005-1.030 Specific [place], Ur 1.021 LAB UHGB Negative Hemoglobin/Blood, Negative Ur LAB UPH 4.5-8.0 pH 7.0 LAB UPROT Negative mg/dL Protein, Abnormal Urine 30 Alert LAB UUROB Normal Urobilinogen Normal LAB UNITR Negative Nitrites Negative LAB ULKEST Negative Leukest Negative LAB UCOM Comments SEE COMMENT Result Comment: N/A LAB UMCOM Urine SEE Irvin Comment COMMENT Result Comment: Interpret results with caution. Urine preservative tube not filled to the required volume. The BD Vacutainer Urinalysis preservative Plus tube must be filled with at least 7 mL and not more than 9 mL of urine in order to maintain the proper additive to urine ratio. LAB UWBC 0-5 /HPF WBC 0-5 LAB URBC 0-3 /HPF RBC 0-3 Performed By: #### UAWMIC #### [facility] [address] [place], [place] [address] COMP METABOLIC PANEL Collected: 03/31/2018 Status: F Source: [place] 2:15 PM [facility] REPOSITORY TYPE CODE TESTS RESULT OUT OF REFERENCE UNITS RANGE LAB TP 6.3-8.0 g/dL Protein, Total 6.9 LAB ALB 3.9-4.9 g/dL Albumin 4.5 LAB CA 8.5-10.2 mg/dL Calcium, Total 9.7 LAB TBIL 0.2-1.3 mg/dL Bilirubin, Total 1.3 LAB ALKP 36-108 U/L Alkaline Phosphatase 44 LAB AST 14-40 U/L AST High 42 LAB GLU 74-99 mg/dL Glucose High 101 Result Comment: The [place] Diabetes Association (ADA) provides guidance for cutoff values for fasting glucose and random glucose. The ADA defines fasting as no caloric intake for at least 8 hours. Fas ting plasma glucose results between 100 to 125 mg/dL indicate increased risk for diabetes (prediabetes). Fasting plasma glucose results greater than or equal to 126 mg/dL meet the criteria for diagnosis of diabetes. In the absence of unequivocal hyperglycemia, results should be confirmed by repeat testing. In a patient with classic symptoms of hyperglycemia or hyperglycemic crisis, random plasma glucose results greater than or equal to 200 mg/dL meet the criteria for diagnosis of diabetes. Reference: Standards of Medical Care in Diabetes 2016, [place] Diabetes Association. Diabetes Care. 2016.39(Suppl 1). LAB BUN 9-24 mg/dL BUN 12 LAB CRET 0.73-1.22 mg/dL Creatinine 0.96 LAB NA 136-144 mmol/L Sodium 140 LAB K 3.7-5.1 mmol/L Potassium 4.0 LAB CL 97-105 mmol/L Chloride 100 LAB CO2 22-30 mmol/L CO2 24 LAB AGAP 9-18 mmol/L Anion Gap 16 LAB ALT 10-54 U/L ALT High 59 LAB GFRAA eGFR- Amer. >60 LAB GFRNAA . eGFR-All Other Races >60 Result Comment: eGFR (Estimated GFR) Units of measure: mL/min/1.73 meters squared eGFR is derived from the reexpressed MDRD Study equation using the following parameters: serum creatinine, age, gender and race. The creatinine assay has been calibrated to be traceable to IDMS. An eGFR <60 mL/min/1.73m2 for >3 months is consistent with chronic kidney disease. Refer to KDOQI guidelines for clinical interpretation. In patients with unstable renal function, e.g. those with acute kidney injury, the eGFR may not accurately reflect actual GFR. Performed By: #### CMP, LIPB #### [facility] [address] [place], [place] [address] LIPID PANEL, BASIC Collected: 03/31/2018 Status: F Source: [place] 2:15 PM [facility] REPOSITORY TYPE CODE TESTS RESULT OUT OF REFERENCE UNITS RANGE LAB CHOL <200 mg/dL Cholesterol High 219 Result Comment: <200 mg/dL, Desirable 200-239 mg/dL, Borderline high >239 mg/dL, High LAB TRIGLY <150 mg/dL Triglyceride High 254 Result Comment: <150 mg/dL, Normal 150-199 mg/dL, Borderline high 200-499 mg/dL, High >499 mg/dL, Very high LAB HDL >39 mg/dL HDL-Cholesterol Low 25 Result Comment: 40-59 mg/dL, Acceptable >59 mg/dL, High: Negative risk factor for coronary heart disease <40 mg/dL, Low: Positive risk factor for coronary heart disease LAB LDL <100 mg/dL LDL-Cholesterol High 143 Result Comment: <100 mg/dL, Optimal 100-129 mg/dL, Near optimal/above optimal 130-159 mg/dL, Borderline high 160-189 mg/dL, High >189 mg/dL, Very high Secondary prevention optimal LDL Cholesterol levels are recommended to be < 70 mg/dL LAB NONHDL <130 mg/dL Non HDL High Cholesterol 194 Result Comment: <130 mg/dL, Optimal 130-159 mg/dL, Near optimal/above optimal 160-189 mg/dL, Borderline high 190-219 mg/dL, High >219 mg/dL, Very high Secondary prevention optimal non HDL Cholesterol levels are recommended to be < 100 mg/dL LAB FT hrs Fasting Time 11 LAB VLDL <30 mg/dL High VLDL Cholesterol 51 LAB TCHDL <5.10 High TC:HDL Ratio 8.76 LAB LDLHDL <2.54 High LDL:HDL Ratio 5.72 Result Comment: Reference: 1. National Cholesterol Education Program ATP III Guideline At-A-Glance Quick Desk Reference: National Heart, Lung, and Blood Comfort. National Institutes of Health. 2001: NIH Publication No. 01-3305. 2. An International Atherosclerosis Society position paper: global recommendations for the management of dyslipidemia: executive summary, Atherosclerosis. 2014: 232(2):410-413. Performed By: #### CMP, LIPB #### [facility] [address] [place], [place] [address] PROGRESS Observed: 02/17/2018 Status: COMPLETED Source: [place] 11:05 AM [facility] REPOSITORY O ID: [id number] Author: Pato Dhaliwal Service: (none) Author Type: Solder Making Laborer Type: Progress Notes Filed: 02/17/2018 11:05 AM Note Text: Radiology Service Progress Note PATIENT NAME: Rena Kaplan DATE OF SERVICE: February 17, 2018 TIME: 11:05 AM PATIENT IDENTITY VERIFICATION COMPLETED USING TWO (2) METHODS: Patient confirmed name verbally and Date of . PATIENT GENDER DATA: Male PATIENT RELEVANT IMPLANT DATA REVIEWED: Not Applicable RADIOLOGY DEPARTMENT: Ultrasound PERIPHERAL IV DATA: Not applicable SIGNED BY: PATO DHALIWAL RDMS [facility] February 17, 2018 11:05 AM [employer] Observed: 02/17/2018 Status: F Source: [place] 11:04 AM [facility] REPOSITORY * * *Final Report* * * DATE OF EXAM: Feb 17 2018 11:04AM U 1250 - US D[employer]PLER LTD / PROCEDURE REASON: Disorder of male genital organs, unspecified * * * * Physician Interpretation * * * * EXAMINATION: ULTRASOUND SCROTUM AND CONTENTS CLINICAL HISTORY: Left testicular lump. TECHNIQUE: Sonography of the scrotal contents with color flow and spectral Doppler imaging of the testicular vasculature was performed. Images were obtained and stored in a permanent archive. MQ: [id number] COMPARISON: None RESULT: RIGHT TESTIS: Size: 4.6 x 3.6 x 2.6 cm Parenchyma: Homogeneous with no calcifications or mass. Epididymis: The right epididymis measures 1.3 x 0.9 x 1.1 cm. No abnormalities seen. Vascularity: Normal intratesticular arterial and venous flow with normal spectral waveforms. LEFT TESTIS: Size: 4.9 x 3.7 x 2.3 cm Parenchyma: Homogeneous with no calcifications or mass. Epididymis: The left epididymis measures 0.9 x 1 x 0.9 cm. No abnormalities seen. Vascularity: Normal intratesticular arterial and venous flow with normal spectral waveforms. HYDROCELE: Trace right-sided hydrocele and mild left-sided hydrocele. VARICOCELE: Left varicocele noted. IMPRESSION: Left-sided varicocele. Trace right-sided hydrocele and mild left-sided hydrocele. Manager Drive: YANA Transcribe Date/Time: Feb 17 2018 11:59A Dictated by : JESSICA MARIN MD This examination was interpreted and the report reviewed and electronically signed by: JESSICA MARIN MD on Feb 17 2018 12:03PM EST [id number] US SCROTUM AND Observed: 02/17/2018 Status: F Source: [facility] 11:04 AM [facility] REPOSITORY * * *Final Report* * * DATE OF EXAM: Feb 17 2018 11:04AM WRU [id number] - US SCROTUM AND CONTENTS / PROCEDURE REASON: Disorder of male genital organs, unspecified * * * * Physician Interpretation * * * * EXAMINATION: ULTRASOUND SCROTUM AND CONTENTS CLINICAL HISTORY: Left testicular lump. TECHNIQUE: Sonography of the scrotal contents with color flow and spectral Doppler imaging of the testicular vasculature was performed. Images were obtained and stored in a permanent archive. MQ: USC_1 COMPARISON: None RESULT: RIGHT TESTIS: Size: 4.6 x 3.6 x 2.6 cm Parenchyma: Homogeneous with no calcifications or mass. Epididymis: The right epididymis measures 1.3 x 0.9 x 1.1 cm. No abnormalities seen. Vascularity: Normal intratesticular arterial and venous flow with normal spectral waveforms. LEFT TESTIS: Size: 4.9 x 3.7 x 2.3 cm Parenchyma: Homogeneous with no calcifications or mass. Epididymis: The left epididymis measures 0.9 x 1 x 0.9 cm. No abnormalities seen. Vascularity: Normal intratesticular arterial and venous flow with normal spectral waveforms. HYDROCELE: Trace right-sided hydrocele and mild left-sided hydrocele. VARICOCELE: Left varicocele noted. IMPRESSION: Left-sided varicocele. Trace right-sided hydrocele and mild left-sided hydrocele. Manager Drive[facility] Transcribe Date/Time: Feb 17 2018 11:59A Dictated by : JESSICA MARIN MD This examination was interpreted and the report reviewed and electronically signed by: JESSICA MARIN MD on Feb 17 2018 12:03PM EST [id number] CBC W/DIFF, AUTOMATED Collected: 02/10/2018 Status: F Source: [place] 11:09 AM [facility] [place] TYPE CODE TESTS RESULT OUT OF RANGE REFERENCE UNITS LAB L100.1000 4.4-11.0 K/mm3 Normal WBC 4.8 LAB L100.1200 4.6-6.2 M/mm3 Normal RBC 4.90 LAB L100.1300 13.0-16.5 g/dl Normal HGB 15.6 LAB L100.1400 40-54 % Normal HCT 43.8 LAB L100.1500 80-94 fL Normal MCV 89.4 LAB L100.1600 27.0-32.0 pg Normal MCH 31.8 LAB L100.1700 32-36 g/gl Normal MCHC 35.6 LAB L100.1810 11.6-14.6 % Normal RDW CV 13.0 LAB L100.1820 35.1-43.9 fl Normal RDW SD 42.5 LAB L100.1900 150-450 K/mm3 Normal PLT 160 LAB L100.2000 6.2-12.0 fl High MPV 12.8 LAB L100.2100 47-70 % Normal NEUT% 56.9 LAB L100.2200 19-41 % Normal LY% 33.8 LAB L100.2300 0-10 % Normal MONO% 7.9 LAB L100.2400 0-5 % Normal EO% 1.2 LAB L100.2500 0-1 % Normal BASO% 0.2 LAB L100.2550 0.0-0.9 % Normal IM GRAN % 0.000 Result Comment: IG% - Immature Granulocytes (promyelocytes, myelocytes and metamyelocytes) > 1% indicates that a LEFT SHIFT is Present. LAB L100.2620 2.0-7.7 X10 3/uL Normal Absolute Neut 2.7 LAB L100.2720 0.83-4.51 X10 3/ul Normal Absolute Lymph 1.63 Performed By: #### L100.0100 #### [facility] [address] [place], [place], [address] PROGRESS Observed: 02/10/2018 Status: COMPLETED Source: [place] 10:24 AM [facility] REPOSITORY HNO ID: [id number] Author: Roel Rivera Service: (none) Author Type: Physician Type: Progress Notes Filed: 02/10/2018 12:17 PM Note Text: Chief Complaint Patient presents with: Physical HPI Rena Kaplan is a 43 year old male who presents here today for WAE and routine. Patient with Hx as reviewed and documented below. Has been doing ok. Seeing Dr. Fernandez. Still on the Imuran and was started on Lialda but insurance saying will not cover. Will be seeing Dr. Fernandez to discuss. Past medical history, appointments, medications, allergies reviewed. Previous Medical History PAST MEDICAL HISTORY Diagnosis Date - Back pain - Plantar fasciitis left foot - Ulcerative colitis, unspecified Previous Surgical History PAST SURGICAL HISTORY Procedure Laterality Date - COLONOSCOPY W/BX 02/10/06 - SIGMOIDOSCOPY FLEX DIAG 04/16/2011 Sigmoidoscopy, flexible Family History FAMILY HISTORY Problem Relation Age of Onset - hypertension [Other] [OTHER] Mother - Hypertension Father hemochromotosis - None Brother - None Sister - Heart Paternal Grandmother - Cancer Paternal Grandfather - crohns [Other] [OTHER] Mother Patient Allergies ALLERGIES No Known Allergies Current Medications Current Outpatient Prescriptions on File Prior to Visit: azaTHIOprine (IMURAN) 50 mg tablet Take [address] Fernandez No current facility-administered medications on file prior to visit. 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 Drug use: No Review of Symptoms REVIEW OF SYSTEMS GENERAL: No weight loss, malaise or fevers HEENT: Negative for frequent or significant headaches, significant change in vision, significant vision problems, significant ear problems or hearing loss, nasal discharge, or nose bleeds, sore throat, difficulty swallowing, mouth lesions, hoarseness NECK: Negative for lumps, goiter, pain and significant neck swelling RESPIRATORY: Negative for cough, hemoptysis, wheezing, COPD, dyspnea or shortness of breath CARDIOVASCULAR: Negative for chest pain, leg swelling, hypertension, CHF or palpitations GI: No nausea, vomiting, or diarrhea and No frequent heartburn or reflux symptoms : No history of dysuria, or blood. MUSCULOSKELETAL: Negative for joint pain or swelling, back pain or muscle pain SKIN: Negative for lesions, rash, and itching PSYCH: Negative for sleep disturbance, mood disorder and recent psychosocial stressors HEMATOLOGY/LYMPHOLOGY: Negative for prolonged bleeding, bruising easily or swollen nodes ENDOCRINE: Negative for cold or heat intolerance, polyuria, polydipsia and goiter NEURO: No history of headaches, syncope, paralysis, seizures or tremors EXAM: BP 124/70 Pulse 70 Temp (!) 35.9 ?C (96.7 ?F) (Tympanic) Resp 16 Ht 182.9 cm (6') Wt 106.9 kg (235 lb 9.6 oz) BMI 31.95 kg/m? General Appearance: Well appearing, alert, in no acute distress, well-hydrated, well nourished., Overweight. Skin: Skin color, texture, turgor normal, no suspicious rashes or lesions. Head: Normocephalic, no masses, lesions, tenderness or abnormalities. Eyes: Anicteric sclera. Pupils are equally round and reactive to light. Extraocular movements are intact. . Ears: External ears normal, canals clear. Nose/Sinuses: Nares normal, septum midline, mucosa normal, no drainage or sinus tenderness. Oropharynx: Lips, mucosa, and tongue normal, teeth and gums normal, oropharynx normal. Neck: Supple, no adenopathy; thyroid symmetric, normal size, no bruits. Lungs: Lungs clear to auscultation. No wheezing, rhonchi, rales. Heart: RRR without murmur, gallop, or rubs. No ectopy. Abdomen: Normal abdominal exam, Abdomen soft, non-tender. Bowel sounds normal. No masses, organomegaly. Extremities: No deformities, edema, skin discoloration. Musculoskeletal: Spine range of motion normal. Muscular strength intact, No joint swelling, deformity, or tenderness. Peripheral Pulses: Normal. Neurologic: Gait normal. Reflexes normal and symmetric. Sensation light touch and crainal nerves 2-12 intact.. Genitalia: Normal, Penis normal. No urethral discharge. Scrotum has a soft non-tender mass on the left side. No hernia.. Health Maintenance List ONE PNEUMOVAX PRIOR TO AGE 65 due on 02/02/1995 LIPID SCREEN due on 08/26/2022 DTAP,TDAP,TD(3 - Td) due on 08/10/2027 INFLUENZA Completed Data reviewed Component Latest Ref Rng AND Units 01/02/2014 08/26/2017 Triglyceride 30 - 149 mg/dL 123 215 (H) Cholesterol, Total 100 - 199 mg/dL 178 209 (H) HDL Cholesterol >45 mg/dL 34 (L) 32 (L) VLDL Cholesterol 6 - 40 mg/dL 25 43 (H) LDL Cholesterol 60 - 129 mg/dL 119 134 (H) Fasting Time hrs FASTING 11 TC:HDL Ratio 1.00 - 5.00 5.24 (H) 6.53 (H) LDL:HDL Ratio 0.50 - 3.55 3.50 4.19 (H) Non HDL Cholesterol 90 - 159 mg/dL 144 177 (H) Hemoglobin A1C 4.3 - 5.6 % 5.4 Estimated Average Glucose mg/dL 108 Glucose, Fasting 74 - 99 mg/dL 96 A/P ASSESSMENT/PLAN: 1. Well adult exam - ICD9: V70.0, ICD10: Z00.00 (primary diagnosis) - Recommended regular aerobic exercise. - Follow up for annual exam in one year. 2. Hyperlipidemia, mixed - ICD9: 272.2, ICD10: E78.2 - to be determined upon return of lab results - Encouraged following a low fat, low cholesterol diet. - Discussed the benefits of regular aerobic exercise and weight loss. - Encouraged following a low carbohydrate, healthy oil intake diet. - COMP METABOLIC PANEL - LIPID PANEL BASIC - URINALYSIS WITH MICROSCOPIC 3. Other ulcerative colitis without complication (HCC) - ICD9: 556.8, ICD10: K51.80 - Cont gastro f/u. Clinically stable 4. Mass of scrotum - ICD9: 608.89, ICD10: N50.9 Check - US SCROTUM AND CONTENTS - US DOPPLER COMPLETE f/u 6 months routine Roel Rivera MD CNOV Observed: 02/10/2018 Status: COMPLETED Source: [place] 10:00 AM [facility] REPOSITORY Office Visit (FAMPWS) RENA KAPLAN ([id number]) 1975 M Date Time Provider Department 02/10/18 10:00 AM ROEL RIVERA FAMPWS During your visit today, we recorded the following information about you: Temperature Pulse Respiration Blood pressure 96.7 degrees 70/minute 16/minute 124/70 Weight Height 106.9 kg 1.829 m Roel Rivera MD 02/10/2018 12:17 PM Signed Chief Complaint Patient presents with: Physical HPI Rena Kaplan is a 43 year old male who presents here today for WAE and routine. Patient with Hx as reviewed and documented below. Has been doing ok. Seeing Dr. Fernandez. Still on the Imuran and was started on Lialda but insurance saying will not cover. Will be seeing Dr. Fernandez to discuss. Past medical history, appointments, medications, allergies reviewed. Previous Medical History PAST MEDICAL HISTORY Diagnosis Date - Back pain - Plantar fasciitis left foot - Ulcerative colitis, unspecified Previous Surgical History PAST SURGICAL HISTORY Procedure Laterality Date - COLONOSCOPY W/BX 02/10/06 - SIGMOIDOSCOPY FLEX DIAG 04/16/2011 Sigmoidoscopy, flexible Family History FAMILY HISTORY Problem Relation Age of Onset - hypertension [Other] [OTHER] Mother - Hypertension Father hemochromotosis - None Brother - None Sister - Heart Paternal Grandmother - Cancer Paternal Grandfather - crohns [Other] [OTHER] Mother Patient Allergies ALLERGIES No Known Allergies Current Medications Current Outpatient Prescriptions on File Prior to Visit: azaTHIOprine (IMURAN) 50 mg tablet Take [address] Fernandez No current facility-administered medications on file prior to visit. 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 Drug use: No Review of Symptoms REVIEW OF SYSTEMS GENERAL: No weight loss, malaise or fevers HEENT: Negative for frequent or significant headaches, significant change in vision, significant vision problems, significant ear problems or hearing loss, nasal discharge, or nose bleeds, sore throat, difficulty swallowing, mouth lesions, hoarseness NECK: Negative for lumps, goiter, pain and significant neck swelling RESPIRATORY: Negative for cough, hemoptysis, wheezing, COPD, dyspnea or shortness of breath CARDIOVASCULAR: Negative for chest pain, leg swelling, hypertension, CHF or palpitations GI: No nausea, vomiting, or diarrhea and No frequent heartburn or reflux symptoms : No history of dysuria, or blood. MUSCULOSKELETAL: Negative for joint pain or swelling, back pain or muscle pain SKIN: Negative for lesions, rash, and itching PSYCH: Negative for sleep disturbance, mood disorder and recent psychosocial stressors HEMATOLOGY/LYMPHOLOGY: Negative for prolonged bleeding, bruising easily or swollen nodes ENDOCRINE: Negative for cold or heat intolerance, polyuria, polydipsia and goiter NEURO: No history of headaches, syncope, paralysis, seizures or tremors EXAM: BP 124/70 Pulse 70 Temp (!) 35.9 ?C (96.7 ?F) (Tympanic) Resp 16 Ht 182.9 cm (6') Wt 106.9 kg (235 lb 9.6 oz) BMI 31.95 kg/m? General Appearance: Well appearing, alert, in no acute distress, well-hydrated, well nourished., Overweight. Skin: Skin color, texture, turgor normal, no suspicious rashes or lesions. Head: Normocephalic, no masses, lesions, tenderness or abnormalities. Eyes: Anicteric sclera. Pupils are equally round and reactive to light. Extraocular movements are intact. . Ears: External ears normal, canals clear. Nose/Sinuses: Nares normal, septum midline, mucosa normal, no drainage or sinus tenderness. Oropharynx: Lips, mucosa, and tongue normal, teeth and gums normal, oropharynx normal. Neck: Supple, no adenopathy; thyroid symmetric, normal size, no bruits. Lungs: Lungs clear to auscultation. No wheezing, rhonchi, rales. Heart: RRR without murmur, gallop, or rubs. No ectopy. Abdomen: Normal abdominal exam, Abdomen soft, non-tender. Bowel sounds normal. No masses, organomegaly. Extremities: No deformities, edema, skin discoloration. Musculoskeletal: Spine range of motion normal. Muscular strength intact, No joint swelling, deformity, or tenderness. Peripheral Pulses: Normal. Neurologic: Gait normal. Reflexes normal and symmetric. Sensation light touch and crainal nerves 2-12 intact.. Genitalia: Normal, Penis normal. No urethral discharge. Scrotum has a soft non-tender mass on the left side. No hernia.. Health Maintenance List ONE PNEUMOVAX PRIOR TO AGE 65 due on 02/02/1995 LIPID SCREEN due on 08/26/2022 DTAP,TDAP,TD(3 - Td) due on 08/10/2027 INFLUENZA Completed Data reviewed Component Latest Ref Rng AND Units 01/02/2014 08/26/2017 Triglyceride 30 - 149 mg/dL 123 215 (H) Cholesterol, Total 100 - 199 mg/dL 178 209 (H) HDL Cholesterol >45 mg/dL 34 (L) 32 (L) VLDL Cholesterol 6 - 40 mg/dL 25 43 (H) LDL Cholesterol 60 - 129 mg/dL 119 134 (H) Fasting Time hrs FASTING 11 TC:HDL Ratio 1.00 - 5.00 5.24 (H) 6.53 (H) LDL:HDL Ratio 0.50 - 3.55 3.50 4.19 (H) Non HDL Cholesterol 90 - 159 mg/dL 144 177 (H) Hemoglobin A1C 4.3 - 5.6 % 5.4 Estimated Average Glucose mg/dL 108 Glucose, Fasting 74 - 99 mg/dL 96 A/P ASSESSMENT/PLAN: 1. Well adult exam - ICD9: V70.0, ICD10: Z00.00 (primary diagnosis) - Recommended regular aerobic exercise. - Follow up for annual exam in one year. 2. Hyperlipidemia, mixed - ICD9: 272.2, ICD10: E78.2 - to be determined upon return of lab results - Encouraged following a low fat, low cholesterol diet. - Discussed the benefits of regular aerobic exercise and weight loss. - Encouraged following a low carbohydrate, healthy oil intake diet. - COMP METABOLIC PANEL - LIPID PANEL BASIC - URINALYSIS WITH MICROSCOPIC 3. Other ulcerative colitis without complication (HCC) - ICD9: 556.8, ICD10: K51.80 - Cont gastro f/u. Clinically stable 4. Mass of scrotum - ICD9: 608.89, ICD10: N50.9 Check - US SCROTUM AND CONTENTS - US DOPPLER COMPLETE f/u 6 months routine Roel Rivera MD Referring Provider: ROEL RIVERA [[id number]] Allergies As of Date: 02/10/2018 (No Known Allergies) Date Reviewed: 02/10/2018 Reviewed by: Roel Rivera - Fully Assessed Reason for Visit: Physical [83] Primary Visit Diagnosis:Well adult exam [Z00.00] Comment:last done: 02/10/2018 Other Visit Diagnoses:Hyperlipidemia, mixed [E78.2] Other ulcerative colitis without complication (HCC) [K51.80] Mass of scrotum [N50.9] Comment:left Order(s):Mesalamine (LIALDA) 1.2 gram EC tabletTake 2 tablets by mouth daily with breakfast. Per Dr. Fernandez: Rfl: US SCROTUM AND CONTENTS [[id number]] Order #: [id number] FUTURE US DOPPLER COMPLETE [[id number]] Order #: [id number] FUTURE COMP METABOLIC PANEL [SQCMP] Order #: [id number] FUTURE LIPID PANEL BASIC [SQLIPB] Order #: [id number] FUTURE URINALYSIS WITH MICROSCOPIC [SQUAWMIC] Order #: [id number] FUTURE Prescriptions as of 02/10/2018 Sig: AZATHIOPRINE 50 MG TABLET Take [address]* MESALAMINE 1.2 GRAM TABLET,DE* Take 2 tablets by mouth daily* Problem List As Of Date 02/10/2018 Noted Resolved Ulcerative colitis (HCC) [K51.90] Priority: B More... Sciatica [M54.30] INVALID FOR*03/17/2011 Back pain [M54.9] INVALID FOR* Priority: M More... Plantar fasciitis of left foot [M72.2] INVALID FOR* Priority: M More... More... Chronic right-sided low back pain with right-si*INVALID FOR* Priority: M Encounter for screening for cardiovascular diso*INVALID FOR* Encounter for screening for diabetes mellitus [*INVALID FOR* Hyperlipidemia, mixed [E78.2] INVALID FOR* Priority: A Well adult exam [Z00.00] INVALID FOR* Priority: E More... Mass of scrotum [N50.9] INVALID FOR* More... Prescriptions ordered this encounter Disp Refills Start End MESALAMINE 1.2 GRAM TABLET,DELAYED R* 02/10/2018 Class: Med Update Route: ORAL Sig: Take 2 tablets by mouth daily with breakfast. Per Dr. Fernandez Disposition: Return in about 6 months (around 08/12/2018) for routine. Follow-up and Disposition History Recorded Encounter Status:Closed by ROEL RIVERA on 02/10/18 ALLERGIES ALLERGIES DATE TYPE / CODE NAME / CODE REACTION SEVERITY SOURCE Drug NO KNOWN [facility] Class/62893 ALLERGIES [address] [place] 1003(SNOMED Repository CT) ENCOUNTERS ENCOUNTERS ADMIT/DISCHARGE ACCOUNT ADMITTING ENCOUNTER LOCATION SOURCE NUMBER CLASS 09/08/2018/09/11/19 [id number] Ambulatory [address] Repository 09/07/2018 [id number] Ambulatory [facility] ing:LABSPEC Repository 09/06/2018 [id number] [facility] ing:MTLAB Repository 09/01/2018/09/01/19 [id number] Ambulatory [address] Repository 09/01/2018/09/04/19 [id number] Ambulatory [address] Repository 05/26/2018/05/26/20 [id number] Ambulatory [address] Repository 05/26/2018 [id number] [facility] ing:MTLAB Repository 03/31/2018/03/31/20 [id number] Ambulatory [address] Repository 02/17/2018/02/18/20 [id number] Ambulatory [address] Repository 02/10/2018 [id number] [facility] ing:LAB.FUTUR Repository E 02/10/2018/02/14/20 [id number] Ambulatory [address] Repository PAYERS PAYERS ENCOUNTER GUARANTOR PAYER SUBSCRIBER SOURCE 09/07/2018 HA L Primary HA L [place] [id number] Insurance:ANTHEMPolic STEELEDOB: [facility] y Number: [id number] [id number] Repository [address]Olw: 330) Date:8444-05-51QZ [phone] () [address] [place] [address]TC: 09/07/2018 Secondary NOT GIVENUNK Janeen Insurance:SELF PAY [facility] Number: Effective Repository Date:2018-09-07 09/06/2018 HA L Primary HA L [place] [id number] Insurance:ANTHEMPolic STEELEDOB: [facility] y Number: [id number], [place] [id number] Repository [address]Cje: 330) Date:6279-93-27FD [phone] () [address] [place] [address]LD: 09/06/2018 Secondary NOT GIVENUNK [place] Insurance:SELF PAY [facility] Number: Effective Repository Date:2018-09-06 05/26/2018 Ha L Primary Ha L Janeen [id number] Insurance:ANTHEMPolic SteeleDOB: Community [facility]AYANA y Number: [id number], [place] [id number] Repository [address]Uqa: ([phone]) Date:5223-81-20FO [phone] () [id number] MORGAN [address]FL: 05/26/2018 Secondary NOT GIVENUNK [place] Insurance:SELF PAY [facility] Number: Effective Repository Date:2018-05-26 02/10/2018 Ha L Primary Leland Wray [place] [id number] Insurance:ANTHEMPolic SteeleDOB: Community NAYANA y Number: [id number], [place] [id number] Repository [address]Wsp: (330) Date:0571-97-02RZ [phone] () [id number], [place] [address]SW: 02/10/2018 Secondary NOT GIVENUNK Harshaw Insurance:SELF PAY [facility] Number: Effective Repository Date:2018-02-02
== END ==
PROVIDERS: Family Provider Family Medicine; PCP Family Medicine; Referring Provider Internal Medicine Gastroenterology; Visit Provider Internal Medicine Gastroenterology
DX: K51.90 Ulcerative colitis, unspecified, without complications (principal)
CPT/HCPCS: 36415; 80076; 85027; 85652

== ENCOUNTER → 2018-09-07 10:19 | Outpatient (CLI) | payer BC, SELFPAY ==
--- OUTSIDE RECORDS SUMMARY | 2018-11-12 00:57 | XMS RPT_ITS ---
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, Community unspecified, without Hospital complications / Repository K51.90(ICD-10) 09/01/2018 Active Abnormal results of NA Active [place] liver function [facility] Main studies / [place] R94.5(ICD-10) Repository 08/28/2017 Active Mixed hyperlipidemia NA Active [place] / E78.2(ICD-10) Clinic Main [place] Repository 02/10/2018 Active 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 [place] genital organs, [facility] Main unspecified / [place] N50.9(ICD-10) Repository PROCEDURES PROCEDURES No Procedure Records FoundRESULTS RESULTS PROGRESS Observed: 09/08/2018 Status: COMPLETED Source: [place] 9:05 AM [facility] REPOSITORY HNO ID: [id number] Author: Beatriz Rosario Service: (none) Author Type: [...] children: 0 Occupational 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[employer] Social History Main Topics Smoking status: [...] MD CNOV Observed: 09/08/2018 Status: COMPLETED Source: [place] 8:20 AM [facility] REPOSITORY Office Visit (GENSWS) RENA KAPLAN ([id number]) 1975 M Date Time Provider Department 09/08/18 [...] children: 0 Occupational 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[employer] Social 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 Main Topics Smoking status: Current [...] Beatriz Rosario MD Referring Provider: ROEL RIVERA [[id number]] Allergies As of Date: 09/08/2018 (No Known Allergies) Date Reviewed: 09/08/2018 Reviewed by: Beatriz Rosario - Fully Assessed Reason for Visit: Consult [173] Primary Visit Diagnosis:Localized swelling, mass and lump, neck [R22.1] Other Visit Diagnosis:Localized swelling, mass or lump of neck [R22.1] Order(s):CT NECK SOFT TISSUE WO IVCON [[id number]] Order #: [id number] FUTURE Prescriptions as of 09/08/2018 Sig: MESALAMINE [...] F Source: [place] CDIFF (MOLECULAR) 12:00 AM [facility] REPOSITORY Cdiff-Molecular Normal Reference Range = Negative C. Diff DNA Negative- No toxigenic C. Diff DNA Detected NAAT METHOD Testing was performed using nucleic acid amplification Performed By: #### M100.6796 #### [facility] [address] [place], [place], [address] CBC-COMPLETE BLOOD CNT Collected: 09/06/2018 Status: F Source: [place] NO DIFF 2:23 PM [facility] REPOSITORY TYPE CODE TESTS RESULT OUT OF [...] 11.7 Performed By: #### L100.0500, L101.9900 #### [facility] [address] [place], [place], [address] ERYTHROCYTE SED RATE Collected: 09/06/2018 Status: F Source: [place] 2:23 PM [facility] REPOSITORY TYPE CODE TESTS RESULT OUT OF RANGE REFERENCE UNITS LAB L102.0000 0-15 mm/hr High SED RATE 37 Performed By: #### L100.0500, L101.9900 #### [facility] [address] [place], [place], [id number] LIVER PROFILE Collected: 09/06/2018 Status: F Source: [place] 2:23 PM [facility] REPOSITORY TYPE CODE TESTS RESULT OUT OF [...] BILI 0.15 Performed By: #### L500.3400 #### [facility] [address] [place], [address] HEPATIC FUNCTN PANEL Collected: 09/01/2018 Status: F Source: [place] 10:40 AM [facility] REPOSITORY TYPE CODE TESTS RESULT OUT OF REFERENCE UNITS RANGE LAB ALB 3.9-4.9 g/dL Albumin 4.7 LAB TBIL 0.2-1.3 mg/dL Bilirubin, Total 0.5 LAB CBIL <0.2 mg/dL Bilirubin,Conjuga <0.2 andrew LAB ALKP 38-113 U/L Alkaline Phosphatase 91 LAB AST 14-40 U/L AST 18 LAB ALT 10-54 U/L ALT 20 LAB TP 6.3-8.0 g/dL Protein, Total 7.2 Performed By: #### HFP, LIPNF #### [facility] [address] [place], [place] [address] LIPID PANEL, NONFAST Collected: 09/01/2018 Status: F Source: [place] 10:40 AM [facility] REPOSITORY TYPE CODE TESTS RESULT OUT OF [...] Desk Reference: National Heart, Lung, and Blood [place]. National Institutes of Health. 2001: NIH Publication No. 01-3305. 2. An International Atherosclerosis Society position paper: global recommendations for the management of dyslipidemia: executive summary, Atherosclerosis. 2014: 232(2):410-413. 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[employer] Social History Main Topics Smoking status: [...] MD CNOV Observed: 09/01/2018 Status: COMPLETED Source: [place] 9:40 AM [facility] REPOSITORY Office Visit (FAMPWS) RENA KAPLAN ([id number]) 1975 M Date Time Provider Department 09/01/18 [...] children: 0 Occupational 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[employer] Social History Main Topics Smoking status: [...] Roel Rivera MD Referring Provider: ROEL RIVERA [[id number]] Allergies As of Date: 09/01/2018 (No Known [...] Rfl: LIPID PANEL, NONFASTING [SQLIPNF] Order #: [id number] FUTURE HEPATIC FUNCTION PNL [SQHFP] Order #: [id number] FUTURE CONSULT TO GENERAL SURGERY [9011] Order #: [id number]: 1 Prescriptions as of 09/01/2018 Sig: AZATHIOPRINE [...] FUNCTN PANEL Collected: 05/26/2018 Status: F Source: [place] 12:31 PM [facility] REPOSITORY TYPE CODE TESTS RESULT OUT OF [...] 6.8 Performed By: #### ROM HAKATHY #### [facility] [employer] [address] [place] [id number] HEPATITIS ACUTE RNA Collected: 05/26/2018 Status: F Source: [place] 12:31 PM [facility] REPOSITORY TYPE CODE TESTS RESULT OUT OF [...] IgM Performed By: #### ROM HACRNA #### [facility] [employer] [address] [place], [place] [address] MISCELLANEOUS LAB Collected: 05/26/2018 Status: F Source: [place] PROCEDURE 12:02 PM [facility] REPOSITORY Order Comment: Comments: PROMETHIUS Test(s) Ordered: PROMETHIUS TYPE CODE TESTS RESULT OUT OF RANGE REFERENCE UNITS LAB L801.1541 Normal [facility] [place] Result Comment: Scanned image report available in EMR Performed By: #### L801.1541 #### [facility] [address] [place], [address] URINALYSIS WITH Collected: 03/31/2018 Status: F Source: [facility] 2:30 PM [facility] REPOSITORY TYPE CODE TESTS RESULT OUT OF RANGE REFERENCE UNITS LAB UCOL Yellow Color Yellow LAB [facility] Clear Clarity Clear LAB UGLUC Negative mg/dL Glucose, Urine Negative LAB UBIL Negative Bilirubin, Urine Negative LAB UKET Negative Ketones, Urine Negative LAB USPG 1.005-1.030 Specific [place], Ur 1.021 LAB UHGB Negative Hemoglobin/Blood, Negative [...] RBC 0-3 Performed By: #### UAWMIC #### [facility] [address] [place], [place] [address] COMP METABOLIC PANEL Collected: 03/31/2018 Status: F Source: [place] 2:15 PM [facility] REPOSITORY TYPE CODE TESTS RESULT OUT OF REFERENCE UNITS RANGE LAB TP 6.3-8.0 g/dL Protein, Total 6.9 LAB ALB 3.9-4.9 g/dL Albumin 4.5 LAB CA 8.5-10.2 mg/dL Calcium, Total 9.7 LAB TBIL 0.2-1.3 mg/dL Bilirubin, Total 1.3 LAB ALKP 36-108 U/L Alkaline Phosphatase 44 LAB AST 14-40 U/L AST High 42 LAB GLU 74-99 mg/dL Glucose High 101 Result Comment: The [place] Diabetes Association (ADA) provides guidance for cutoff [...] Standards of Medical Care in Diabetes 2016, [place] Diabetes Association. Diabetes Care. 2016.39(Suppl 1). LAB [...] GFR. Performed By: #### CMP, LIPB #### [facility] [address] [place], [place] [address] LIPID PANEL, BASIC Collected: 03/31/2018 Status: F Source: [place] 2:15 PM [facility] MAIN CAMPUS REPOSITORY TYPE [...] Desk Reference: National Heart, Lung, and Blood [place]. National Institutes of Health. 2001: NIH Publication No. 01-3305. 2. An International Atherosclerosis Society position paper: global recommendations for the management of dyslipidemia: executive summary, Atherosclerosis. 2014: 232(2):410-413. Performed By: #### CMP, LIPB #### [facility] [address] [place], [place] [address] PROGRESS Observed: 02/17/2018 Status: COMPLETED Source: [place] 11:05 AM [facility] REPOSITORY O ID: [id number] Author: Pato Dhaliwal Service: (none) Author Type: Support Director Type: Progress Notes Filed: 02/17/2018 11:05 AM [...] Not applicable SIGNED BY: PATO DHALIWAL RDMS [facility] February 17, 2018 11:05 AM [employer] Observed: 02/17/2018 Status: F Source: [place] 11:04 AM [facility] REPOSITORY * * *Final Report* * * [...] Trace right-sided hydrocele and mild left-sided hydrocele. Floriculture Teacher: YANA Transcribe Date/Time: Feb 17 2018 11:59A Dictated by : JESSICA MARIN MD This examination was interpreted and the report reviewed and electronically signed by: JESSICA MARIN MD on Feb 17 2018 12:03PM EST [id number] US SCROTUM AND Observed: 02/17/2018 Status: F Source: [facility] 11:04 AM [facility] REPOSITORY * * *Final Report* * * [...] Trace right-sided hydrocele and mild left-sided hydrocele. Floriculture Teacher[facility] Transcribe Date/Time: Feb 17 2018 11:59A Dictated by : JESSICA MARIN MD This examination was interpreted and the report reviewed and electronically signed by: JESSICA MARIN MD on Feb 17 2018 12:03PM EST [id number] CBC W/DIFF, AUTOMATED Collected: 02/10/2018 Status: F Source: [place] 11:09 AM [facility] REPOSITORY TYPE CODE TESTS RESULT OUT OF [...] Lymph 1.63 Performed By: #### L100.0100 #### [facility] [address] 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 Fernandez: Rfl: US SCROTUM AND CONTENTS [[id number]] Order #: [id number] FUTURE US DOPPLER COMPLETE [[id number]] Order #: [id number] FUTURE COMP METABOLIC PANEL [SQCMP] Order #: [id number] FUTURE LIPID PANEL BASIC [SQLIPB] Order #: [id number] FUTURE URINALYSIS WITH MICROSCOPIC [SQUAWMIC] Order #: [id number] FUTURE Prescriptions as of 02/10/2018 Sig: AZATHIOPRINE [...] CODE REACTION SEVERITY SOURCE Drug NO KNOWN [facility] Class/32352 ALLERGIES Main [place] 1003(SNOMED Repository CT) ENCOUNTERS ENCOUNTERS ADMIT/DISCHARGE ACCOUNT ADMITTING ENCOUNTER LOCATION SOURCE NUMBER CLASS 09/08/2018/09/11/19 [id number] Ambulatory [address] Repository 09/07/2018 [id number] Ambulatory [facility] ing:LABSPEC Repository 09/06/2018 [id number] [facility] ing:MTLAB Repository 09/01/2018/09/01/19 [id number] Ambulatory [address] Repository 09/01/2018/09/04/19 [id number] Ambulatory [address] Repository 05/26/2018/05/26/20 [id number] Ambulatory [address] Repository 05/26/2018 [id number] [facility] ing:MTLAB Repository 03/31/2018/03/31/20 [id number] Ambulatory [address] Repository 02/17/2018/02/18/20 [id number] Ambulatory [address] Repository 02/10/2018 [id number] [facility] ing:LAB.FUTUR Repository E 02/10/2018/02/14/20 [id number] Ambulatory [address] Repository PAYERS PAYERS ENCOUNTER GUARANTOR PAYER SUBSCRIBER SOURCE 09/07/2018 HA L Primary HA L [place] [id number] Insurance:ANTHEMPolic STEELEDOB: [facility] y [place]: [id number] [id number] Repository [address]Iub: 330) Date:4809-73-97MR [phone] () [address] [place] [address] 92184QH: 09/07/2018 Secondary NOT GIVENUNK Janeen Insurance:SELF PAY [facility] Number: Effective Repository Date:2018-09-07 09/06/2018 HA L Primary HA L [place] [id number] Insurance:ANTHEMPolic STEELEDOB: [facility] y Number: [id number], [place] [id number] Repository [address]Iot: [phone]) Date:5359-69-17TC [phone] () [address] [place] [address] 70831AB: 09/06/2018 Secondary NOT GIVENUNK [place] Insurance:SELF PAY [facility] Number: Effective Repository Date:2018-09-06 05/26/2018 Ha L Primary Ha L Jane[place] [id number] Insurance:ANTHEMPolic SteeleDOB: Community NAYANA y Number: [id number], [place] [id number] Repository [address]Tsn: ([phone]) Date:9260-94-61MY [phone] () [id number] MORGAN [address]DR: 05/26/2018 Secondary NOT GIVENUNK [place] Insurance:SELF PAY [facility] Number: Effective Repository Date:2018-05-26 02/10/2018 Ha L Primary Leland Wray [place] [id number] Insurance:ANTHEMPolic SteeleDOB: Community NAYANA y Number: [id number], [place] [id number] Repository [address]Ngg: ([phone]) Date:2821-58-19[phone] () [id number], [place] [address]NB: 02/10/2018 Secondary NOT GIVENUNK [place] Insurance:SELF PAY [facility] Number: Effective Repository Date:2018-02-02
== END ==
PROVIDERS: Family Provider Family Medicine; PCP Family Medicine; Referring Provider Internal Medicine Gastroenterology; Visit Provider Internal Medicine Gastroenterology
DX: K51.90 Ulcerative colitis, unspecified, without complications (principal)
CPT/HCPCS: 87493

== ENCOUNTER → 2019-02-23 | Outpatient (CLI) | payer OTHER, SELFPAY ==
[2019-02-23 14:25] LABS: Absolute Neutrophil Count 3.3 X10^3/uL (2.0-7.7); Basophil# 0.02 X10^3/uL; Basophil% 0.4 % (0-1); Eosinophil# 0.07 X10^3/uL; Eosinophils% 1.3 % (0-5); Hematocrit 42.8 % (40-54); Hemoglobin 14.8 g/dl (13.0-16.5); Lymphocyte % 31.1 % (19-41); Mean Corp Hgb Conc 34.6 g/gl (32-36); Mean Corpuscular Hgb 30.3 pg (27.0-32.0); Mean Corpuscular Volume 87.5 fL (80-94); Mean Platelet Vol. 11.9 fl (6.2-12.0); Monocyte# 0.35 X10^3/uL; Monocyte% 6.4 % (0-10); Neutrophil # 3.32 X10^3/uL (2.7-7.7); Neutrophil % 60.8 % (47-70); Platelet Count 204 K/mm3 (150-450); RBC Distribution Width CV 13.8 % (11.6-14.6); RBC Distribution Width SD 43.6 fl (35.1-43.9); Red Blood Count 4.89 M/mm3 (4.6-6.2); White Blood Count 5.5 K/mm3 (4.4-11.0)
[2019-02-23 14:29] LABS: POSITIVE COUNT NO; POSITIVE DIFFERENTIAL NO; POSITIVE MORPHOLOGY NO
== END | disposition home or self-care (01) ==
LOC: MTLAB 12:46
PROVIDERS: Family Provider Family Medicine; PCP Family Medicine; Referring Provider Internal Medicine Gastroenterology; Visit Provider Internal Medicine Gastroenterology
DX: K51.90 Ulcerative colitis, unspecified, without complications (principal)
CPT/HCPCS: 36415; 85025

== ENCOUNTER → 2019-05-09 13:50 | Outpatient (CLI) | payer OTHER, SELFPAY ==
[2019-05-09 15:43] LABS: Absolute Lymphocyte Count 1.85 X10^3/uL (0.83-4.51); Absolute Neutrophil Count 5.2 X10^3/uL (2.0-7.7); Basophil# 0.03 X10^3/uL; Basophil% 0.4 % (0-1); Eosinophil# 0.06 X10^3/uL; Eosinophils% 0.8 % (0-5); Hematocrit 45.4 % (40-54); Hemoglobin 15.2 g/dL (13.0-16.5); Lymphocyte # 1.85 X10^3/ul (4.0); Mean Corp Hgb Conc 33.5 g/dL (32-36); Mean Corpuscular Hgb 30.7 pg (27.0-32.0); Mean Corpuscular Volume 91.7 fL (80-94); Mean Platelet Vol. 11.7 fl (6.2-12.0); Monocyte# 0.59 X10^3/uL; Monocyte% 7.7 % (0-10); NRBC Flagged by Analyzer 0 % (0-5); Neutrophil # 5.15 X10^3/uL (2.7-7.7); Neutrophil % 66.8 % (47-70); Platelet Count 227 K/mm3 (150-450); Red Blood Count 4.95 M/mm3 (4.6-6.2); White Blood Count 7.7 K/mm3 (4.4-11.0)
== END ==
PROVIDERS: Family Provider Family Medicine; PCP Family Medicine; Referring Provider Internal Medicine Gastroenterology; Visit Provider Internal Medicine Gastroenterology
DX: K51.90 Ulcerative colitis, unspecified, without complications (principal)
CPT/HCPCS: 36415; 85025

== ENCOUNTER → 2019-10-26 15:36 | Outpatient (CLI) | payer OTHER, SELFPAY ==
[2019-10-26 17:18] LABS: Absolute Lymphocyte Count 1.55 X10^3/uL (0.83-4.51); Absolute Neutrophil Count 3.9 X10^3/uL (2.0-7.7); Basophil# 0.02 X10^3/uL; Basophil% 0.3 % (0-1); Eosinophil# 0.08 X10^3/uL; Eosinophils% 1.3 % (0-5); Hematocrit 43.6 % (40-54); Hemoglobin 14.4 g/dL (13.0-16.5); Lymphocyte # 1.55 X10^3/ul (4.0); Lymphocyte % 25.9 % (19-41); Mean Corpuscular Hgb 29.6 pg (27.0-32.0); Mean Corpuscular Volume 89.5 fL (80-94); Monocyte# 0.47 X10^3/uL; Monocyte% 7.8 % (0-10); NRBC Flagged by Analyzer 0 % (0-5); Neutrophil # 3.86 X10^3/uL (2.7-7.7); Neutrophil % 64.5 % (47-70); Platelet Count 220 K/mm3 (150-450); RBC Distribution Width CV 13.1 % (11.6-14.6); RBC Distribution Width SD 42.5 fl (35.1-43.9); Red Blood Count 4.87 M/mm3 (4.6-6.2)
== END ==
PROVIDERS: PCP Family Medicine; Referring Provider Internal Medicine Gastroenterology; Visit Provider Internal Medicine Gastroenterology
DX: K51.90 Ulcerative colitis, unspecified, without complications (principal)
CPT/HCPCS: 36415; 85025

== ENCOUNTER → 2020-02-13 13:29 | Outpatient (CLI) | payer SELFPAY | PROVIDERS: PCP Family Medicine; Referring Provider Internal Medicine Gastroenterology; Visit Provider Internal Medicine Gastroenterology | DX: K51.90 Ulcerative colitis, unspecified, without complications (principal) | CPT/HCPCS: 36415 ==

== ENCOUNTER → 2020-05-30 12:54 | Outpatient (CLI) | payer SELFPAY ==
[2020-05-30 15:23] LABS: Hematocrit 42.8 % (40-54); Hemoglobin 14.7 g/dL (13.0-16.5); Mean Corp Hgb Conc 34.3 g/dL (32-36); Mean Corpuscular Hgb 32.4 pg (27.0-32.0); Mean Corpuscular Volume 94.3 fL (80-94); Mean Platelet Vol. 12.5 fl (6.2-12.0); Platelet Count 217 K/mm3 (150-450); RBC Distribution Width CV 13.7 % (11.6-14.6); RBC Distribution Width SD 46.8 fl (35.1-43.9); Red Blood Count 4.54 M/mm3 (4.6-6.2)
[2020-05-30 15:36] LABS: Erythrocyte Sedimentation Rate 19 mm/hr (0-15)
== END ==
PROVIDERS: PCP Family Medicine; Referring Provider Internal Medicine Gastroenterology; Visit Provider Internal Medicine Gastroenterology
DX: K51.90 Ulcerative colitis, unspecified, without complications (principal)
CPT/HCPCS: 36415; 85027; 85652

== ENCOUNTER → 2020-10-22 13:10 | Outpatient (CLI) | payer SELFPAY ==
[2020-10-22 15:14] LABS: Absolute Lymphocyte Count 1.81 X10^3/uL (0.83-4.51); Absolute Neutrophil Count 4.8 X10^3/uL (2.0-7.7); Basophil# 0.04 X10^3/uL; Basophil% 0.5 % (0-1); Eosinophil# 0.05 X10^3/uL; Eosinophils% 0.7 % (0-5); Hematocrit 47.1 % (40-54); Lymphocyte # 1.81 X10^3/ul (4.0); Lymphocyte % 24.6 % (19-41); Mean Corpuscular Hgb 30.8 pg (27.0-32.0); Mean Corpuscular Volume 90.6 fL (80-94); Mean Platelet Vol. 12.5 fl (6.2-12.0); Monocyte# 0.62 X10^3/uL; Monocyte% 8.4 % (0-10); NRBC Flagged by Analyzer 0 % (0-5); Neutrophil # 4.82 X10^3/uL (2.7-7.7); Neutrophil % 65.5 % (47-70); Platelet Count 273 K/mm3 (150-450); RBC Distribution Width CV 13.7 % (11.6-14.6); RBC Distribution Width SD 45.5 fl (35.1-43.9); White Blood Count 7.4 K/mm3 (4.4-11.0)
== END ==
PROVIDERS: PCP Family Medicine; Referring Provider Internal Medicine Gastroenterology; Visit Provider Internal Medicine Gastroenterology
DX: K51.90 Ulcerative colitis, unspecified, without complications (principal)
CPT/HCPCS: 36415; 85025

== ENCOUNTER → 2022-06-21 | Outpatient (CLI) | payer BC, SELFPAY ==
[2022-06-21 12:33] LABS: ALB/GLOB Ratio 1.3 RATIO (0.9-2.4); AST(SGOT) 37 U/L (15-37); Alanine Aminotransfer ALT/SGPT 72 U/L (16-61); Albumin, Serum 3.8 g/dL (3.2-5.0); Alkaline Phosphatase 50 U/L (45-117); Anion Gap 7 (5-15); BUN 14 mg/dL (7-18); BUN/Creat Ratio 13.9 RATIO (10-20); Calcium,Total 9.3 mg/dL (8.5-10.1); Chloride 105 mmol/L (98-107); Creatinine, Serum 1.01 mg/dL (0.70-1.30); EST Glomerular Filtration Rate 84 mL/min (>60); Est Glom Filt Rate - Afr Amer 102 mL/min (>60); Glucose 148 mg/dL (74-106); Potassium 3.8 mmol/L (3.5-5.1); Protein, Total 6.8 g/dL (6.4-8.2); Sodium Level 141 mmol/L (136-145)
[2022-06-21 12:44] LABS: Absolute Lymphocyte Count 1.34 X10^3/uL (0.83-4.51); Absolute Neutrophil Count 2.9 X10^3/uL (2.0-7.7); Basophil# 0.02 X10^3/uL; Basophil% 0.4 % (0-1); Eosinophil# 0.04 X10^3/uL; Eosinophils% 0.9 % (0-5); Hematocrit 45.9 % (40-54); Lymphocyte # 1.34 X10^3/ul (0.83-4.51); Lymphocyte % 29.9 % (19-41); Mean Corp Hgb Conc 34.9 g/dL (32-36); Mean Corpuscular Hgb 31.6 pg (27.0-32.0); Mean Corpuscular Volume 90.7 fL (80-94); Mean Platelet Vol. 12.3 fl (6.2-12.0); Monocyte# 0.22 X10^3/uL; Monocyte% 4.9 % (0-10); NRBC Flagged by Analyzer 0 % (0-5); Neutrophil # 2.85 X10^3/uL (2.7-7.7); Neutrophil % 63.7 % (47-70); Platelet Count 209 K/mm3 (150-450); RBC Distribution Width CV 13.1 % (11.6-14.6); RBC Distribution Width SD 42.5 fl (35.1-43.9); Red Blood Count 5.06 M/mm3 (4.6-6.2); White Blood Count 4.5 K/mm3 (4.4-11.0)
== END | disposition home or self-care (01) ==
PROVIDERS: PCP Family Medicine; Referring Provider Internal Medicine Gastroenterology; Visit Provider Internal Medicine Gastroenterology
DX: K51.90 Ulcerative colitis, unspecified, without complications (principal)
CPT/HCPCS: 36415; 80053; 85025

== ENCOUNTER → 2023-05-27 | Outpatient (CLI) | payer BC, SELFPAY ==
[2023-05-27 17:36] LABS: Absolute Lymphocyte Count 1.66 X10^3/uL (0.83-4.51); Absolute Neutrophil Count 4.4 X10^3/uL (2.0-7.7); Basophil# 0.04 X10^3/uL; Basophil% 0.6 % (0-1); Eosinophil# 0.04 X10^3/uL; Eosinophils% 0.6 % (0-5); Hematocrit 47.7 % (40-54); Hemoglobin 16.1 g/dL (13.0-16.5); Lymphocyte # 1.66 X10^3/ul (0.83-4.51); Lymphocyte % 24.8 % (19-41); Mean Corp Hgb Conc 33.8 g/dL (32-36); Mean Corpuscular Hgb 30.8 pg (27.0-32.0); Mean Corpuscular Volume 91.4 fL (80-94); Monocyte# 0.57 X10^3/uL; Monocyte% 8.5 % (0-10); NRBC Flagged by Analyzer 0 % (0-5); Neutrophil # 4.37 X10^3/uL (2.7-7.7); Neutrophil % 65.2 % (47-70); Platelet Count 206 K/mm3 (150-450); RBC Distribution Width CV 13.3 % (11.6-14.6); RBC Distribution Width SD 44.9 fl (35.1-43.9); Red Blood Count 5.22 M/mm3 (4.6-6.2); White Blood Count 6.7 K/mm3 (4.4-11.0)
[2023-05-27 18:49] LABS: ALB/GLOB Ratio 1.5 RATIO (0.9-2.4); AST(SGOT) 47 U/L (15-37); Alanine Aminotransfer ALT/SGPT 80 U/L (16-61); Albumin, Serum 4.1 g/dL (3.2-5.0); Alkaline Phosphatase 53 U/L (45-117); Anion Gap 6 (5-15); BUN 12 mg/dL (7-18); BUN/Creat Ratio 12.8 RATIO (10-20); Bilirubin, Direct 0.25 mg/dL (0.00-0.30); CRP < 2.90 mg/L (0.0-3.0); Calcium,Total 9.4 mg/dL (8.5-10.1); Chloride 106 mmol/L (98-107); Creatinine, Serum 0.94 mg/dL (0.70-1.30); EST Glomerular Filtration Rate 92 mL/min (>60); Est Glom Filt Rate - Afr Amer 111 mL/min (>60); Globulin 2.8 g/dL (2.2-4.2); Glucose 100 mg/dL (74-106); Potassium 4.1 mmol/L (3.5-5.1); Protein, Total 6.9 g/dL (6.4-8.2); Sodium Level 140 mmol/L (136-145)
== END | disposition home or self-care (01) ==
LOC: MTLAB 15:56
PROVIDERS: PCP Family Medicine; Referring Provider Internal Medicine Gastroenterology; Visit Provider Internal Medicine Gastroenterology
DX: K51.90 Ulcerative colitis, unspecified, without complications (principal)
CPT/HCPCS: 36415; 80053; 82248; 85025; 86140

== ENCOUNTER → 2023-06-03 | Outpatient (CLI) | payer BC, SELFPAY ==
[2023-06-10 00:07] LABS: Calprotectin, Stool <5 ug/g (0-120)
== END | disposition home or self-care (01) ==
LOC: MTLAB 12:40
PROVIDERS: PCP Family Medicine; Referring Provider Internal Medicine Gastroenterology; Visit Provider Internal Medicine Gastroenterology
DX: K51.90 Ulcerative colitis, unspecified, without complications (principal)
CPT/HCPCS: 83993

== ENCOUNTER → 2023-07-29 | Outpatient (CLI) | payer BC, SELFPAY ==
[2023-07-29 16:33] LABS: AST(SGOT) 42 U/L (15-37); Alanine Aminotransfer ALT/SGPT 78 U/L (16-61); Albumin, Serum 3.9 g/dL (3.2-5.0); Alkaline Phosphatase 53 U/L (45-117); Bilirubin, Direct 0.17 mg/dL (0.00-0.30); Protein, Total 6.9 g/dL (6.4-8.2)
== END | disposition home or self-care (01) ==
LOC: MTLAB 13:05
PROVIDERS: PCP Family Medicine; Referring Provider Internal Medicine Gastroenterology; Visit Provider Internal Medicine Gastroenterology
DX: K51.90 Ulcerative colitis, unspecified, without complications (principal)
CPT/HCPCS: 36415; 80076

== ENCOUNTER → 2023-10-07 | Outpatient (CLI) | payer BC, SELFPAY ==
[2023-10-07 15:51] LABS: Absolute Lymphocyte Count 1.93 X10^3/uL (0.83-4.51); Absolute Neutrophil Count 3.3 X10^3/uL (2.0-7.7); Basophil# 0.05 X10^3/uL; Basophil% 0.8 % (0-1); Eosinophil# 0.06 X10^3/uL; Hematocrit 47.2 % (40-54); Hemoglobin 15.9 g/dL (13.0-16.5); Lymphocyte # 1.93 X10^3/ul (0.83-4.51); Lymphocyte % 32.8 % (19-41); Mean Corp Hgb Conc 33.7 g/dL (32-36); Mean Corpuscular Hgb 30.5 pg (27.0-32.0); Mean Corpuscular Volume 90.6 fL (80-94); Mean Platelet Vol. 12.7 fl (6.2-12.0); Monocyte# 0.55 X10^3/uL; Monocyte% 9.3 % (0-10); NRBC Flagged by Analyzer 0 % (0-5); Neutrophil # 3.28 X10^3/uL (2.7-7.7); Neutrophil % 55.8 % (47-70); Platelet Count 195 K/mm3 (150-450); RBC Distribution Width CV 13.3 % (11.6-14.6); RBC Distribution Width SD 44.1 fl (35.1-43.9); Red Blood Count 5.21 M/mm3 (4.6-6.2); White Blood Count 5.9 K/mm3 (4.4-11.0)
[2023-10-07 16:44] LABS: AST(SGOT) 38 U/L (15-37); Alanine Aminotransfer ALT/SGPT 70 U/L (16-61); Albumin, Serum 4.1 g/dL (3.2-5.0); Alkaline Phosphatase 62 U/L (45-117); Bilirubin, Direct 0.14 mg/dL (0.00-0.30); Globulin 2.9 g/dL (2.2-4.2)
== END | disposition home or self-care (01) ==
LOC: MTLAB 12:47
PROVIDERS: PCP Family Medicine; Referring Provider Internal Medicine Gastroenterology; Visit Provider Internal Medicine Gastroenterology
DX: K51.90 Ulcerative colitis, unspecified, without complications (principal)
CPT/HCPCS: 36415; 80076; 85025

== ENCOUNTER → 2023-12-30 | Outpatient (CLI) | payer BC, SELFPAY ==
[2023-12-30 13:52] LABS: Absolute Lymphocyte Count 1.79 X10^3/uL (0.83-4.51); Absolute Neutrophil Count 3.3 X10^3/uL (2.0-7.7); Basophil# 0.03 X10^3/uL; Basophil% 0.5 % (0-1); Eosinophil# 0.04 X10^3/uL; Eosinophils% 0.7 % (0-5); Hematocrit 44.9 % (40-54); Hemoglobin 15.4 g/dL (13.0-16.5); Lymphocyte # 1.79 X10^3/ul (0.83-4.51); Lymphocyte % 31.9 % (19-41); Mean Corp Hgb Conc 34.3 g/dL (32-36); Mean Corpuscular Hgb 30.2 pg (27.0-32.0); Mean Platelet Vol. 12.5 fl (6.2-12.0); Monocyte# 0.43 X10^3/uL; Monocyte% 7.7 % (0-10); NRBC Flagged by Analyzer 0 % (0-5); Neutrophil % 58.8 % (47-70); Platelet Count 202 K/mm3 (150-450); RBC Distribution Width CV 13.1 % (11.6-14.6); RBC Distribution Width SD 42.5 fl (35.1-43.9); White Blood Count 5.6 K/mm3 (4.4-11.0)
[2023-12-30 14:11] LABS: AST(SGOT) 32 U/L (15-37); Alanine Aminotransfer ALT/SGPT 58 U/L (16-61); Alkaline Phosphatase 73 U/L (45-117); Bilirubin, Direct 0.17 mg/dL (0.00-0.30)
== END | disposition home or self-care (01) ==
PROVIDERS: PCP Family Medicine; Referring Provider Internal Medicine Gastroenterology; Visit Provider Internal Medicine Gastroenterology
DX: K51.90 Ulcerative colitis, unspecified, without complications (principal)
CPT/HCPCS: 36415; 80076; 85025

== ENCOUNTER → 2024-11-09 | Outpatient (CLI) | payer BC, SELFPAY ==
[2024-11-09 16:33] LABS: Absolute Lymphocyte Count 1.91 X10^3/uL (0.83-4.51); Absolute Neutrophil Count 4.1 X10^3/uL (2.0-7.7); Basophil# 0.03 X10^3/uL; Basophil% 0.5 % (0-1); Eosinophil# 0.05 X10^3/uL; Eosinophils% 0.8 % (0-5); Hematocrit 45.7 % (40-54); Hemoglobin 15.8 g/dL (13.0-16.5); Lymphocyte # 1.91 X10^3/ul (0.83-4.51); Lymphocyte % 29.2 % (19-41); Mean Corp Hgb Conc 34.6 g/dL (32-36); Mean Corpuscular Hgb 30.7 pg (27.0-32.0); Mean Corpuscular Volume 88.7 fL (80-94); Monocyte# 0.48 X10^3/uL; Monocyte% 7.3 % (0-10); NRBC Flagged by Analyzer 0 % (0-5); Neutrophil # 4.05 X10^3/uL (2.7-7.7); Neutrophil % 61.9 % (47-70); Platelet Count 191 K/mm3 (150-450); RBC Distribution Width CV 13.1 % (11.6-14.6); RBC Distribution Width SD 42.9 fl (35.1-43.9); Red Blood Count 5.15 M/mm3 (4.6-6.2); White Blood Count 6.5 K/mm3 (4.4-11.0)
[2024-11-09 16:34] LABS: AST(SGOT) 34 U/L (<=37); Alanine Aminotransfer ALT/SGPT 54 U/L (<=46); Albumin, Serum 4.6 g/dL (3.5-5.0); Alkaline Phosphatase 49 U/L (40-129); Anion Gap 12 (5-15); BUN 17 mg/dL (4-19); BUN/Creat Ratio 16.8 RATIO (10-20); Calcium,Total 9.9 mg/dL (7.6-11.0); Carbon Dioxide 25.2 mmol/L (21.0-32.0); Chloride 100 mmol/L (98-108); Creatinine, Serum 1.01 mg/dL (0.70-1.20); EST Glomerular Filtration Rate 92 (>60); Globulin 2.3 g/dL (2.2-4.2); Glucose 104 mg/dL (70-99); Potassium 3.8 mmol/L (3.3-5.1); Protein, Total 6.9 g/dL (5.9-8.4); Sodium Level 137 mmol/L (133-145); Total Bilirubin 0.79 mg/dL (0.00-1.30)
== END | disposition home or self-care (01) ==
LOC: MTLAB 13:04
PROVIDERS: PCP Family Medicine; Referring Provider Internal Medicine Gastroenterology; Visit Provider Internal Medicine Gastroenterology
DX: K51.90 Ulcerative colitis, unspecified, without complications (principal)
CPT/HCPCS: 36415; 80053; 85025

== ENCOUNTER → 2025-03-15 | Outpatient (CLI) | payer BC, SELFPAY ==
[2025-03-15 15:11] LABS: Hematocrit 44.3 % (40-54); Hemoglobin 15.4 g/dL (13.0-16.5); Immature Granulocytes Count 0.010 X10^3/uL (0.0-0.0); Mean Corp Hgb Conc 34.8 g/dL (32-36); Mean Corpuscular Volume 88.6 fL (80-94); Mean Platelet Vol. 12.2 fl (6.2-12.0); NRBC Flagged by Analyzer 0 % (0-5); Platelet Count 210 K/mm3 (150-450); RBC Distribution Width CV 13.0 % (11.6-14.6); RBC Distribution Width SD 42.3 fl (35.1-43.9); Red Blood Count 5.00 M/mm3 (4.6-6.2); White Blood Count 5.4 K/mm3 (4.4-11.0)
[2025-03-15 16:01] LABS: AST(SGOT) 35 U/L (<=37); Alanine Aminotransfer ALT/SGPT 59 U/L (<=46); Albumin, Serum 4.6 g/dL (3.5-5.0); Alkaline Phosphatase 47 U/L (40-129); Anion Gap 13 (5-15); BUN 15 mg/dL (4-19); BUN/Creat Ratio 14.7 RATIO (10-20); Calcium,Total 10.0 mg/dL (7.6-11.0); Carbon Dioxide 23.3 mmol/L (21.0-32.0); Chloride 103 mmol/L (98-108); Globulin 2.3 g/dL (2.2-4.2); Glucose 123 mg/dL (70-99); Potassium 3.7 mmol/L (3.3-5.1)
== END | disposition home or self-care (01) ==
PROVIDERS: PCP Family Medicine; Referring Provider Internal Medicine Gastroenterology; Visit Provider Internal Medicine Gastroenterology
DX: K51.90 Ulcerative colitis, unspecified, without complications (principal)
CPT/HCPCS: 36415; 80053; 85025